=== PATIENT | female | born 1935 | race Caucasian/White ===

== ENCOUNTER → 2018-01-01 15:26 | Outpatient (CLI) | payer MEDICARE, OTHER, SELFPAY ==
[2018-01-01 16:00] LABS: Add Manual Diff / Slide Review NO; Basophils Percent Auto 1.1 % (0-2); Eosinophils Percent Auto 0.5 % (2-4); Hematocrit 36.9 % (36-46); Hemoglobin 12.2 g/dL (12.0-16.0); Lymphocytes Percent Auto 24.6 % (25-40); Mean Corpuscular HGB Conc 32.9 % (30-36); Mean Corpuscular Hemoglobin 29.7 PG (26-34); Mean Corpuscular Volume 90.3 fL (80-100); Monocytes Percent Auto 10.7 % (3-14); Neutrophils Absolute Auto 7600 /uL (3000-5900); Neutrophils Percent Auto 63.1 % (50-75); Platelet Count 345 X10^3/uL (150-400); Red Blood Cell Count 4.09 X10^6/uL (4.0-5.2); White Blood Cell Count 12.1 X10^3/uL (4.5-11.0)
[2018-01-01 16:07] LABS: Alanine Aminotransferase 32 IU/L (9-52); Albumin 4.1 g/dL (3.5-5.0); Albumin Globulin Ratio 1.2 (1.0-2.8); Alkaline Phosphatase 94 U/L (38-126); Aspartate Aminotransferase 36 IU/L (14-36); BUN Creatinine Ratio 35.7 (6-22); Bilirubin Total 0.3 mg/dL (0.2-1.3); Blood Urea Nitrogen 25 mg/dL (7-17); C-Reactive Protein Quant 0.7 mg/dL (<1.0); Calcium 9.6 mg/dL (8.4-10.2); Carbon Dioxide 25 mmol/L (22-32); Chloride 105 mmol/L (98-107); Estimated Glomerular Filt Rate > 60.0 mL/min (>60); Globulin 3.5 g/dL (1.7-4.1); Glucose 88 mg/dL (80-110); HEMOLYSIS < 15 (0-50); Potassium 4.3 mmol/L (3.4-5.1); Sodium 141 mmol/L (137-145); Total Protein 7.6 g/dL (6.3-8.2)
[2018-01-01 16:27] LABS: Erythrocyte Sedimentation Rate 32 MM/HR (0-20)
== END ==
PROVIDERS: PCP Internal Medicine; Visit Provider Internal Medicine
DX: R51 Headache (principal)
CPT/HCPCS: 36415; 80053; 85025; 85651; 86140

== ENCOUNTER → 2018-01-03 12:38 | Outpatient (CLI) | payer MEDICARE, OTHER, SELFPAY ==
--- NOTE | 2018-01-03 12:55 | DI.CT.S_ITS ---
PROCEDURE: CT FACIAL BONES WO CON INDICATIONS: 82 year-old woman with left facial pain. TECHNIQUE: Noncontrast 2.5 mm thick axial images acquired from the mandible through the frontal sinuses, with coronal and sagittal reformatting. For radiation dose reduction, the following was used: automated exposure control, adjustment of mA and/or kV according to patient size. COMPARISON: None. FINDINGS: Image quality: Excellent. Bones and teeth: Orbital watkins are intact. Sinus watkins show no fracture or deformity. Nasal bones and septum are intact. Visualized portions of the mandible demonstrate no fractures or subluxation. Zygomatic arches are intact. Pterygoid plates are intact. Visualized portions of the skull base and auditory canals are intact. There are degenerative changes in visualized upper cervical spine. Sinuses: The left frontal and maxillary sinus are opacified. There is mucosal thickening in the left ethmoid sinus. The left ostiomeatal unit is obstructed. Mastoid air cells are aerated. Soft tissues: No edema, masses, or fluid collections. No enlarged lymph nodes. No soft tissue lacerations or debris. Vascular: Visualized vascular structures appear normal in the absence of contrast. Bony vascular foramina and canals are intact. IMPRESSION: 1. Intact facial bones. 2. Left frontal, ethmoid and maxillary sinusitis. Dictated by: Albert Santiago M.D. on 01/03/2018 at 13:48 Transcribed by: WILSON on 01/03/2018 at 14:09 Approved by: Albert Santiago M.D. on 01/03/2018 at 15:18
--- NOTE | 2018-01-03 12:55 | DI.CT.S_ITS ---
PROCEDURE: CT HEAD/BRAIN WO CON INDICATIONS: headache TECHNIQUE: Noncontrast 4.5 mm thick angled axial sections acquired from the foramen magnum to the vertex, with coronal and sagittal reformats. For radiation dose reduction, the following was used: automated exposure control, adjustment of mA and/or kV according to patient size. COMPARISON: [facility], CT, HEAD WITHOUT CONTRAST, 07/17/2012, 11:15. FINDINGS: Image quality: Excellent. CSF spaces: Basal cisterns are patent. No extra-axial fluid collections. The ventricles are symmetric in size and shape. Brain: No intracranial bleeds or masses. There is cerebral volume loss for age, with resultant ventricular and sulcal prominence. There are periventricular and deep white matter chronic small vessel ischemic changes. There is intracranial internal carotid artery atherosclerosis. Anterior left temporal lobe encephalomalacia versus arachnoid cyst, unchanged since 2012. Skull and face: Calvarium and visualized facial bones appear intact, without suspicious lesions. Sinuses: Partially visualized complete opacification of the left maxillary sinus. There is partial opacification of the left ethmoid air cells IMPRESSION: No acute intracranial process. Severe left maxillary and ethmoid sinus disease. Dictated by: Endy oLve M.D. on 01/03/2018 at 12:54 Approved by: Endy Love M.D. on 01/03/2018 at 12:57
== END ==
PROVIDERS: PCP Internal Medicine; Visit Provider Internal Medicine
DX: R51 Headache (principal); J32.2 Chronic ethmoidal sinusitis; J32.0 Chronic maxillary sinusitis; J32.1 Chronic frontal sinusitis
CPT/HCPCS: 70450; 70486

== ENCOUNTER → 2018-08-07 10:06 | Outpatient (CLI) | payer MEDICARE, OTHER, SELFPAY ==
--- NOTE | 2018-08-07 10:09 | DI.RAD.S_ITS ---
PROCEDURE: XR SACRUM COCCYX MIN 2V INDICATIONS: Right sided sciatica TECHNIQUE: 3 views of the sacrum and coccyx acquired. COMPARISON: None. FINDINGS: Bones: No fractures or dislocations. No suspicious bony lesions. Soft tissues: Visualized bowel gas pattern is normal. No suspicious soft tissue densities. IMPRESSION: Mild sacroiliac joint degenerative osteoarthritic change, no mass or area of osseous abnormality is found that would explain asymmetric right sided sciatica. Results were referred to lumbosacral spine plane film report from today. Dictated by: Sean Saxena M.D. on 08/07/2018 at 10:40 Approved by: Sean Saxena M.D. on 08/07/2018 at 10:41
--- NOTE | 2018-08-07 10:09 | DI.RAD.S_ITS ---
PROCEDURE: XR LUMBAR SPINE 2-3V INDICATIONS: Right sided sciatica TECHNIQUE: 3 views of the lumbar spine were acquired. COMPARISON: None. FINDINGS: Bones: 5 xyc-nla-rixjoiy vertebrae are present. There is abnormal bony alignment at the L4-L5 level where grade 1 anterolisthesis is associated with prominent facet osteoarthritis allowing ligamentous laxity.. No vertebral body compression fractures. No suspicious bony lesions. Degenerative disc disease along the lumbosacral spine is mild to moderate in overall severity. This is best seen at L5-S1. Facet osteoarthritis becomes progressively more prominent from L3-S1. It is most pronounced at L4-5 and L5-S1 where significant spinal and foraminal stenosis likely is associated. Soft tissues: Overlying bowel gas pattern is normal. No suspicious soft tissue calcifications. IMPRESSION: Degenerative changes along the middle and lower thirds of the lumbosacral spine are present to the degree that significant spinal or foraminal stenosis would be expected. No compression fracture found. Dictated by: Sean Saxena M.D. on 08/07/2018 at 10:39 Approved by: Sean Saxena M.D. on 08/07/2018 at 10:40
== END ==
PROVIDERS: PCP Internal Medicine; Visit Provider Registered Nurse
DX: M47.27 Other spondylosis with radiculopathy, lumbosacral region (principal); M47.28 Other spondylosis with radiculopathy, sacral and sacrococcygeal region
CPT/HCPCS: 72100; 72220

== ENCOUNTER → 2018-09-09 11:09 | Outpatient (CLI) | payer MEDICARE, OTHER, SELFPAY ==
[2018-09-09 12:05] LABS: Add Manual Diff / Slide Review NO; Basophils Absolute Auto 100 /uL (0-100); Eosinophils Absolute Auto 100 /uL (0-450); Eosinophils Percent Auto 0.9 % (2-4); Hematocrit 39.9 % (36-46); Hemoglobin 13.4 g/dL (12.0-16.0); Lymphocytes Absolute Auto 2000 /uL (1100-4500); Lymphocytes Percent Auto 21.6 % (25-40); Mean Corpuscular HGB Conc 33.6 % (30-36); Mean Corpuscular Hemoglobin 29.6 PG (26-34); Mean Corpuscular Volume 88.1 fL (80-100); Monocytes Absolute Auto 800 /uL (0-900); Monocytes Percent Auto 9.1 % (3-14); Neutrophils Absolute Auto 6100 /uL (1500-7000); Neutrophils Percent Auto 67.4 % (50-75); Platelet Count 213 X10^3/uL (150-400); Red Blood Cell Count 4.53 X10^6/uL (4.0-5.2); White Blood Cell Count 9.1 X10^3/uL (4.5-11.0)
[2018-09-09 13:42] LABS: Alanine Aminotransferase 26 IU/L (9-52); Albumin 4.1 g/dL (3.5-5.0); Albumin Globulin Ratio 1.4 (1.0-2.8); Alkaline Phosphatase 143 U/L (38-126); Aspartate Aminotransferase 33 IU/L (14-36); BUN Creatinine Ratio 38.6 (6-22); Bilirubin Total 0.5 mg/dL (0.2-1.3); Blood Urea Nitrogen 27 mg/dL (7-17); Calcium 10.1 mg/dL (8.4-10.2); Carbon Dioxide 26 mmol/L (22-32); Chloride 102 mmol/L (98-107); Estimated Glomerular Filt Rate > 60.0 mL/min (>60); Glucose 84 mg/dL (80-110); HEMOLYSIS < 15 (0-50); Potassium 5.1 mmol/L (3.4-5.1); Sodium 137 mmol/L (137-145); Total Protein 7.1 g/dL (6.3-8.2)
== END ==
PROVIDERS: PCP Internal Medicine; Visit Provider Internal Medicine
DX: I10 Essential (primary) hypertension (principal); I25.10 Atherosclerotic heart disease of native coronary artery without angina pectoris
CPT/HCPCS: 36415; 80053; 85025

== ENCOUNTER → 2019-01-06 10:02 | Outpatient (CLI) | payer MEDICARE, OTHER, SELFPAY ==
[2019-01-06 11:10] LABS: Alanine Aminotransferase 23 IU/L (9-52); Aspartate Aminotransferase 36 IU/L (14-36); Cholesterol 156 mg/dL (140-199); Creatine Kinase 32 U/L (30-135); HDL Cholesterol 92 mg/dL (40-60); LDL Cholesterol Calculated 49 mg/dL (<100); Triglycerides 77 mg/dL (35-150)
[2019-01-06 11:21] LABS: LDL Cholesterol Direct 62 mg/dL (<100)
== END ==
PROVIDERS: PCP Internal Medicine; Visit Provider Internal Medicine Cardiovascular Disease
DX: E78.5 Hyperlipidemia, unspecified (principal)
CPT/HCPCS: 36415; 80061; 82550; 83721; 84450; 84460

== ENCOUNTER → 2019-01-21 15:17 | Outpatient (CLI) | payer MEDICARE, OTHER, SELFPAY ==
[2019-01-21 16:02] LABS: Bacteria Urine None Seen
[2019-01-21 16:38] LABS: Appearance Urine UA CLOUDY; Bilirubin Urine UA NEGATIVE (NEGATIVE); Color Urine UA YELLOW; Glucose Urine UA NEGATIVE (Negative); Ketones Urine UA NEGATIVE (NEGATIVE); Leukocyte Esterase Urine UA 2+ (NEGATIVE); Nitrite Urine UA NEGATIVE (Negative); Occult Blood Urine UA 3+ (Negative); Protein Urine UA 1+ (Negative); Specific Gravity Urine UA 1.025 (1.000-1.035); Urobilinogen Urine UA 0.2 E.U./dL (0.2)
[2019-01-21 17:01] LABS: Culture Indicated Urine Specimen Cultured; RBC Urine 30-100/HPF (0-5/HPF); WBC Urine 30-100/HPF (0-5/HPF)
== END ==
PROVIDERS: PCP Internal Medicine; Visit Provider Student in an Organized Health Care Education/Training Program
DX: R39.89 Other symptoms and signs involving the genitourinary system (principal)
CPT/HCPCS: 81001; 87077; 87086; 87186

== ENCOUNTER → 2019-07-14 10:43 | Outpatient (CLI) | payer MEDICARE, OTHER, SELFPAY ==
[2019-07-14 11:30] LABS: Influenza A - CEPHEID Flu A POSITIVE (NEGATIVE); Influenza B - CEPHEID Flu B NEGATIVE (NEGATIVE)
== END ==
PROVIDERS: PCP Internal Medicine; Visit Provider Physician Assistant
DX: R68.89 Other general symptoms and signs (principal)
CPT/HCPCS: 87502

== ENCOUNTER → 2019-10-10 12:09 | Outpatient (CLI) | payer MEDICARE, OTHER, SELFPAY ==
[2019-10-10 13:48] LABS: Add Manual Diff / Slide Review NO; Basophils Absolute Auto 100 /uL (0-100); Basophils Percent Auto 0.7 % (0-2); Eosinophils Absolute Auto 100 /uL (0-450); Eosinophils Percent Auto 0.7 % (2-4); Hematocrit 42.3 % (36-46); Lymphocytes Absolute Auto 2200 /uL (1100-4500); Lymphocytes Percent Auto 27.2 % (25-40); Mean Corpuscular HGB Conc 33.2 % (30-36); Mean Corpuscular Hemoglobin 32.9 PG (26-34); Mean Corpuscular Volume 99.2 fL (80-100); Monocytes Absolute Auto 900 /uL (0-900); Monocytes Percent Auto 10.7 % (3-14); Neutrophils Absolute Auto 4900 /uL (1500-7000); Neutrophils Percent Auto 60.7 % (50-75); Platelet Count 194 X10^3/uL (150-400); Red Blood Cell Count 4.27 X10^6/uL (4.0-5.2); Red Cell Distribution Width 14.6 % (11.6-14.8)
[2019-10-10 14:43] LABS: Alanine Aminotransferase 23 IU/L (<35); Albumin 4.3 g/dL (3.5-5.0); Albumin Globulin Ratio 1.3 (1.0-2.8); Alkaline Phosphatase 72 U/L (38-126); Aspartate Aminotransferase 42 IU/L (14-36); Bilirubin Total 0.4 mg/dL (0.2-1.3); Blood Urea Nitrogen 20 mg/dL (7-17); Calcium 9.9 mg/dL (8.4-10.2); Carbon Dioxide 26 mmol/L (22-32); Chloride 103 mmol/L (98-107); Estimated Glomerular Filt Rate > 60.0 mL/min (>60); Globulin 3.2 g/dL (1.7-4.1); Glucose 91 mg/dL (80-110); HEMOLYSIS < 15 (0-50); Potassium 4.6 mmol/L (3.4-5.1); Sodium 137 mmol/L (137-145); Total Protein 7.5 g/dL (6.3-8.2)
[2019-10-10 15:16] LABS: TSH w/ Reflex to FT4 1.61 uIU/mL (0.47-4.68)
== END ==
PROVIDERS: PCP Internal Medicine; Referring Provider Internal Medicine; Visit Provider Internal Medicine
DX: I10 Essential (primary) hypertension (principal); I25.10 Atherosclerotic heart disease of native coronary artery without angina pectoris
CPT/HCPCS: 36415; 80053; 84443; 85025

== ENCOUNTER → 2019-10-18 13:25 | Outpatient (CLI) | payer MEDICARE, OTHER, SELFPAY ==
[2019-10-19 01:19] LABS: COVID19 Sendout Not Detected (Not Detect)
== END ==
PROVIDERS: PCP Internal Medicine; Visit Provider Physician Assistant
DX: Z01.812 Encounter for preprocedural laboratory examination (principal)
CPT/HCPCS: 87635

== ENCOUNTER → 2019-10-21 09:34 | Outpatient (CLI) | payer MEDICARE, OTHER, SELFPAY ==
--- NOTE | 2019-10-21 14:52 | PM.TREADMILL ---
Cardiac Stress Test Report Referral & Results Date Patient Seen: 10/21/19 Requesting provider: Jose Angel Jose Indication: Chest pain/back pain Rest ECG: Left bundle branch block, old Procedure Note: After both written and verbal informed consent the patient had an IV started by the diagnostic imaging RN, and then was hooked up to the treadmill monitoring system. The Lexiscan material, and then the Cardiolite tracer, were administered sequentially. An additional 3 min was spent monitoring the patient while supine on the gurney. The patient had a normal response to all infused materials. Impression: Please see perfusion imaging report for details regarding possible ischemia. Patient had normal response to materials as above. Please note: Actual ECG tracings can be found in the PACS system.
--- NOTE | 2019-10-22 07:04 | DI.NM.S_ITS ---
DATE OF SERVICE: 10/21/2019 PROCEDURE PERFORMED: Pharmacologic vasodilator stress and rest myocardial perfusion imaging with gating to assess ejection fraction, performed as a one day study. ORDERING PROVIDER: Dr. Jose Angel Jose. INDICATIONS: The patient is an 81-year-old female with a history of LAD stenting, now with recurrent chest discomfort. PHARMACOLOGIC STRESS: Per protocol, the patient was injected with 0.4 mg of regadenoson with a normal hemodynamic response. There were no apparent symptoms reported. Her resting ECG shows a left bundle branch block which precludes assessment of the ST segments. With stress, there are no appreciable ST-segment shifts and there are no arrhythmias. Per protocol, 24.9 mCi of technetium-99m Myoview was injected and the patient was imaged 15 minutes later using a gated SPECT acquisition protocol. Earlier in the day, she had been injected with 12.3 mCi of technetium- 99m Myoview and was imaged 30 minutes later, again using a gated SPECT acquisition protocol. FINDINGS: 1. Raw data: There is fair myocardial tracer uptake with mild breast shadows noted. Lung/heart ratio was normal at 0.35. TID ratio was normal at 0.76. 2. Quantitated gated SPECT: Post-stress ejection fraction is estimated at 74%. There is a mild dyssynchronous contraction pattern, consistent with her conduction disease, but there are no obvious focal wall motion abnormalities. Resting ejection fraction is 73% with a similar contraction pattern. Resting end-diastolic volume is normal at 83 mL. 3. Myocardial perfusion imaging: Post-stress supine images show a fairly normal myocardial perfusion pattern with very subtle defect in the distal anterior apex that nearly completely resolves on prone imaging, most likely representing breast attenuation artifact. There are no other perfusion defects. The resting images show a similar perfusion pattern without any areas of improvement. The distal anterior apical defect is more prominent on the resting images. CONCLUSION: 1. Probable normal myocardial perfusion study. 2. Mild fixed distal anteroapical defect that nearly completely resolves on prone imaging, most likely reflective of attenuation artifact although a previous nontransmural infarction cannot be entirely excluded. There is no evidence for any myocardial ischemia. 3. Normal LV systolic function with a mild dyssynchronous contraction pattern due to her conduction disease. Left ventricular volumes are normal. 4. No apparent angina with pharmacologic vasodilator stress. Her pre-existing LBBB precludes assessment of ST segments, but there is no obvious ECG evidence for ischemia. Brittany Carpio - Michelle/romeo doc#: [id number]/job#: [id number] dd: 10/21/2019 17:09:00 dt: 10/21/2019 18:15:00 DICTATING /COPIES TO: Leo Desai MD; RHONDA Porter; Jose Angel Jose MD COPIES MNE: [id number]; ;
== END ==
PROVIDERS: PCP Internal Medicine; Referring Provider Internal Medicine; Visit Provider Internal Medicine
DX: I25.10 Atherosclerotic heart disease of native coronary artery without angina pectoris (principal); R07.89 Other chest pain; I44.7 Left bundle-branch block, unspecified; M54.9 Dorsalgia, unspecified; Z95.5 Presence of coronary angioplasty implant and graft
CPT/HCPCS: 78452; 93016; 93017; 93018; A9502; J2785

== ENCOUNTER → 2020-10-26 12:05 | Outpatient (CLI) | payer MEDICARE, OTHER, SELFPAY ==
[2020-10-26 12:43] LABS: Add Manual Diff / Slide Review NO; Basophils Absolute Auto 0 /uL (0-100); Basophils Percent Auto 0.6 % (0-2); Eosinophils Absolute Auto 100 /uL (0-450); Eosinophils Percent Auto 0.7 % (2-4); Hematocrit 39.1 % (36-46); Lymphocytes Absolute Auto 2400 /uL (1100-4500); Lymphocytes Percent Auto 31.9 % (25-40); Mean Corpuscular HGB Conc 33.2 % (30-36); Mean Corpuscular Hemoglobin 32.9 PG (26-34); Monocytes Absolute Auto 800 /uL (0-900); Monocytes Percent Auto 11.3 % (3-14); Neutrophils Absolute Auto 4200 /uL (1500-7000); Neutrophils Percent Auto 55.5 % (50-75); Platelet Count 195 X10^3/uL (150-400); Red Blood Cell Count 3.95 X10^6/uL (4.0-5.2); Red Cell Distribution Width 13.6 % (11.6-14.8); White Blood Cell Count 7.5 X10^3/uL (4.5-11.0)
[2020-10-26 13:19] LABS: Alanine Aminotransferase 21 IU/L (<35); Albumin 3.9 g/dL (3.5-5.0); Albumin Globulin Ratio 1.4 (1.0-2.8); Alkaline Phosphatase 61 U/L (38-126); Aspartate Aminotransferase 33 IU/L (14-36); BUN Creatinine Ratio 22.6 (6-22); Bilirubin Total 0.5 mg/dL (0.2-1.3); Blood Urea Nitrogen 19 mg/dL (7-17); Calcium 10.3 mg/dL (8.4-10.2); Carbon Dioxide 26 mmol/L (22-32); Chloride 104 mmol/L (98-107); Estimated Glomerular Filt Rate > 60.0 mL/min (>60); Globulin 2.8 g/dL (1.7-4.1); Glucose 97 mg/dL (80-110); HEMOLYSIS < 15 (0-50); Potassium 4.9 mmol/L (3.4-5.1); Sodium 137 mmol/L (137-145); Total Protein 6.7 g/dL (6.3-8.2)
[2020-10-26 13:26] LABS: Free T4, Direct Thyroxine 0.97 ng/dL (0.78-2.19)
[2020-10-26 13:40] LABS: Thyroid Stimulating Hormone 2.24 uIU/mL (0.47-4.68)
== END ==
PROVIDERS: PCP Internal Medicine; Referring Provider Internal Medicine; Visit Provider Internal Medicine
DX: G60.9 Hereditary and idiopathic neuropathy, unspecified (principal); I10 Essential (primary) hypertension; I25.10 Atherosclerotic heart disease of native coronary artery without angina pectoris
CPT/HCPCS: 36415; 80053; 84439; 84443; 85025

== ENCOUNTER → 2020-10-29 08:36 | Outpatient (CLI) | payer MEDICARE, OTHER, SELFPAY ==
--- NOTE | 2020-10-29 08:37 | DI.MRI.S_ITS ---
PROCEDURE: MR STROKE Pre- and post-contrast brain MRI, non-contrast brain MR angiogram, pre- and postcontrast neck MR angiogram INDICATIONS: mild cognitive impairment TECHNIQUE: Brain: Noncontrast axial T1 spin echo, axial T2 fast spin echo, sagittal and axial FLAIR, coronal T2 fast spin echo, axial gradient echo, axial diffusion and ADC through the brain. After the administration of contrast, axial 3D VIBE of the cranial vasculature and brain. Brain MRA: Non-contrast 3-D time of flight MR angiogram, with multiple zfhlbnc-udyvmstio-fjoxnqtklj (MIP) reformats performed. Neck MRA: Axial and sagittal TruFISP through the neck. Coronal dynamic MR angiogram during administration of contrast in the arterial and venous phases, with 3-dimenstional hcopqdg-elhplfhye-zwbzwqfzbw (MIP) reformats constructed from subtraction images. COMPARISON: [facility], , STROKE PROTOCOL, 03/15/2011, 11:31. FINDINGS: BRAIN: CSF spaces: Ventricles are grossly unremarkable. Basal cisterns are patent. No extra-axial fluid collections. Brain: No midline shift. No intracranial bleeds or masses. Rivas-white matter interface appears intact. Scattered small white matter changes, probably represent chronic microvascular ischemic disease, versus statistically less likely demyelination or other infectious, inflammatory, neurodegenerative etiology, technically nonspecific. No acute ischemia. No abnormal enhancement. Skull and face: Calvarium and facial bones appear intact. Orbits appear normal. Sinuses: Sinuses and mastoids are clear. HEAD MR ANGIOGRAPHY: Anterior circulation: Intracranial internal carotid arteries (ICA): Patent. Anterior cerebral arteries (LELIA): Patent. Middle cerebral arteries (MCA): Patent. Other: No aneurysms are seen. Posterior circulation: Visualized portions of the vertebral arteries: Patent. Basilar artery: Patent. Posterior cerebral arteries ([employer]ATIONS [employer]GER): Patent. Other: No aneurysms are seen. NECK MR ANGIOGRAPHY: Carotid system: Common carotid artery (CCA) origins: Patent. Common carotid arteries (CCA): Patent. Internal carotid arteries (ICA): Patent. Posterior circulation: Vertebral artery origins: Patent. Extracranial portions of both vertebral arteries: Patent. Basilar artery: Patent. Soft tissues: Visualized neck soft tissues demonstrate no suspicious abnormalities. Bones: No suspicious bony lesions. Cervical spondylosis and facet arthropathy. IMPRESSION: BRAIN MRI: No evidence of acute ischemia. Diffuse small white matter changes, probably represent chronic microvascular ischemic disease, versus statistically less likely demyelination or other infectious, inflammatory, neurodegenerative etiology, technically nonspecific. BRAIN MR ANGIOGRAM: No intracranial stenosis or occlusion. NECK MR ANGIOGRAM: No hemodynamically significant (>50%) ICA stenosis Dictated by: Endy Love M.D. on 10/29/2020 at 10:53 Approved by: Endy Love M.D. on 10/29/2020 at 11:03
== END ==
PROVIDERS: PCP Internal Medicine; Referring Provider Internal Medicine; Visit Provider Internal Medicine
DX: G31.84 Mild cognitive impairment of uncertain or unknown etiology (principal); M47.812 Spondylosis without myelopathy or radiculopathy, cervical region
CPT/HCPCS: 70548; 70553; A9579

== ENCOUNTER 2021-03-08 09:13 | Emergency (ER) | payer MEDICARE, OTHER, SELFPAY ==
[2021-03-08 09:15] VITALS: BP 157/91; PULSE 72; RESP 16; TEMP 36.2; O2SAT 99
--- NOTE | 2021-03-08 09:30 | ED_ITS ---
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 The area was wet because of recent rain. She slipped on walking back up the steps into the house. She fell forward striking her face. She has a laceration to the upper lip, and a contusion to her chin. She also sustained a contusion to the right hand. She denies eye injury, no visual changes. She has no dental injury or bleeding from her mouth. She has no head pain. She denies neck pain. There is no chest, or torso injury. She has contusion on the right thenar eminence, she recently had surgery to the area for arthritis. She has no restriction of motion of the right wrist over the right thumb. There are no other injuries. She takes aspirin, she is not otherwise anticoagulated. Related Data Home Medications Medication Instructions Recorded Confirmed aspirin 81 mg tablet,delayed 81 mg PO QDAY #0 04/06/12 12/03/20 release [EYLEA] #0 04/02/17 12/03/20 nitroglycerin 0.4 mg sublingual 0.4 mg SL Q5-15M PRN 01/01/18 12/03/20 tablet omega-3 fatty acids 1,000 mg 2,000 mg PO DAILY 01/01/18 12/03/20 capsule (Fish Oil Concentrate) amlodipine 10 mg tablet 10 mg PO BID tab 01/31/18 12/03/20 metoprolol tartrate 100 mg tablet 100 mg PO BID tab 10/26/20 12/03/20 Vitamin B12 1 tab PO QAM #0 11/16/20 12/03/20 atorvastatin 20 mg tablet 20 mg PO BEDTIME tab 11/16/20 12/03/20 calcium carbonate 500 mg calcium 500 mg PO BID cap 11/16/20 12/03/20 (1,250 mg) capsule furosemide 20 mg tablet 20 mg PO DAILY tab 11/16/20 12/03/20 isosorbide mononitrate 30 mg 30 mg PO DAILY 11/16/20 12/03/20 tablet,extended release 24 hr lisinopril 5 mg tablet 5 mg PO DAILY tab 11/16/20 12/03/20 vitamins A,C,B-vofr-wxzimg 14,320 2 cap PO Q DAY #0 cap 11/16/20 12/03/20 unit-226 mg-200 unit capsule (PreserVision AREDS) Previous Rx's Medication Instructions Recorded estradiol 1 mg tablet 1 mg PO QDAY #90 tab 05/24/20 Allergies Allergy/AdvReac Type Severity Reaction Status Date / Time No Known Drug Allergies Allergy Unknown Verified 03/08/21 09:23 [NO KNOWN DRUG ALLERGIES] Review of Systems Constitutional Constitutional: Reports as per HPI, Denies fever(s) and Denies headache(s) Comments: No recent illness Eyes Eyes: Denies blurry vision and Denies change in vision ENT Ears, Nose, Mouth, and Throat: Reports as per HPI, Denies vertigo, Denies dizziness and Denies headache(s) Cardiovascular Cardiovascular: Denies chest pain, Denies rapid heart rate and Denies dyspnea Respiratory Respiratory: Denies dyspnea Musculoskeletal Comments: Right hand injury, no other musculoskeletal complaints. Integumentary/Breasts Comments: Contusions. 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, wet (~2008) Measles Mild cognitive impairment Mumps Personal history of colonic polyps Surgical History Anesthesia History of ankle surgery (~1991) History of cataract removal with insertion of prosthetic lens (~2002) History of cataract removal with insertion of prosthetic lens (~2003) History of knee surgery (~2013) S/P PTCA (percutaneous transluminal coronary angioplasty) (11/13/19) Status post colectomy (~08/1996) Status post hysterectomy with oophorectomy (~1982) Family History Father Family history of colon cancer Grandmother Heart disease Grandfather Heart disease Grandmother Heart disease Grandfather No problems noted. Mother No problems noted. 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 Boat Rowing 2x a week) Smoking Status: Never smoker Tobacco: How many years used: 0 quit status: quit date established (Never Started) second hand exposure: No alcohol intake: current (Seldom) substance use type: does not use Smoking Status: Never smoker alcohol intake frequency: 0-2 drinks per day Substance Use Type: does not use Exam Initial Vital Signs Initial Vital Signs: Vital Signs Temperature 97.1 F L 03/08/21 09:15 Pulse Rate 72 03/08/21 09:15 Respiratory Rate 16 03/08/21 09:15 Blood Pressure 157/91 H 03/08/21 09:15 Pulse Oximetry 99 03/08/21 09:15 Const General: cooperative, comfortable and well groomed HENMT Ears: TM's normal bilaterally Nose: nares normal Mouth: oral mucosae normal and tongue normal Throat: posterior oropharynx normal Eyes General: appearance normal, both eyes and all related structures Conjunctivae: conjunctivae normal Pupils: PERRL EOM: EOM intact bilaterally Other: 3 cm irregular laceration from above the upper lip, across the vermilion border, and into the mid upper lip. Slight bleeding. No foreign body. This is not a through and through laceration. Contusion to the chip. No palpable deformity. No malocclusion. Neck Neck: full ROM and No tender Back/Spine/Pelvis Back: No back tenderness Skin General: other (Multiple contusions) Neuro General: patient alert, patient awake, patient oriented x3 and no focal motor deficits Extrem Other: Contusion to the right thenar eminence. Normal range of motion to the right wrist is, normal range of motion at the 1st MCP. No significant tenderness. No malrotation or digital deformity. No open wounds. Capillary refills normal in the right hand. There is no other injury to the extremities. Psych Mental Status: mental status grossly normal Procedures Laceration Repair Laceration 1: Site: lip (Upper lip through the vermilion border) Size (cm): 3 Description: irregular Depth: simple, single layer Local Anesthetic: lidocaine 1% Amount of anesthesia used (mL): 2 Pre-repair: wound explored, irrigated extensively and deep structures intact Skin layer closed with: nylon Size (cm): 6-0 Number of sutures: 4 Technique: simple, interrupted Course Orders Ordered: Discontinued Medications Bacitracin (Bacitracin Oint 0.9 Gm Pckt) 1 applic TOP NOW ONE Stop: 03/08/21 10:12 Last Admin: 03/08/21 10:23 Dose: 1 applic Documented by: JACOB Lidocaine HCl (Lidocaine 1% (Pf)) 4 ml INJ NOW ONE Stop: 03/08/21 09:29 Last Admin: 03/08/21 10:24 Dose: 2 ml Documented by: JACOB Vital Signs Vital signs: Vital Signs - 8 hr 03/08/21 09:15 Temperature 97.1 F L Pulse Rate 72 Respiratory Rate 16 Blood Pressure 157/91 H Pulse Oximetry 99 Discharge Plan Departure Patient Disposition: Home Clinical Impression: Complicated laceration of lip, Coronary artery disease involving [place] coronary artery of [place] heart without angina pectoris Instructions: DI for Laceration Repair Activity Restrictions/Additional Instructions: The bandage can come off later today. You may bathe normally once the bandages off. Follow-up with your doctor in approximately 1 week for suture removal. Return here if necessary. Prescriptions: No Action aspirin 81 MG tablet,delayed release (DR/EC) 81 mg PO QDAY Qty: 0 RF: 0 [EYLEA] Qty: 0 RF: 0 estradiol 1 mg tablet 1 mg PO QDAY Qty: 90 RF: 3 Vitamin B12 1 tab PO QAM Qty: 0 RF: 0 PreserVision AREDS 14,320-226-200 gbmr-ja-rboe capsule 2 cap PO Q DAY Qty: 0 RF: 0 amlodipine 10 mg tablet 10 mg PO BID RF: 0 atorvastatin 20 mg tablet 20 mg PO BEDTIME RF: 0 omega-3 fatty acids [Fish Oil Concentrate] 1,000 mg capsule 2,000 mg PO DAILY RF: 0 nitroglycerin 0.4 mg tablet, sublingual 0.4 mg SL Q5-15M PRNRF: 0 calcium carbonate 500 mg calcium (1,250 mg) capsule 500 mg PO BID RF: 0 metoprolol tartrate 100 mg TABLET 100 mg PO BID RF: 0 lisinopril 5 mg TABLET 5 mg PO DAILY RF: 0 furosemide 20 mg TABLET 20 mg PO DAILY RF: 0 isosorbide mononitrate 30 mg tablet extended release 24 hr 30 mg PO DAILY RF: 0 Referrals: Jose Angel Jose MD [Primary Care Provider] -
[2021-03-08] MEDS: BACITRACIN OINT 0.9 GM PCKT 1 APPLIC TOP (10:23)
[2021-03-08] MEDS: LIDOCAINE 1% (PF) 4 ML INJ (10:24)
[2021-03-08 10:34] VITALS: BP 152/74; PULSE 60; RESP 18; O2SAT 96
== END 2021-03-08 10:35 | disposition home or self-care (01) ==
PROVIDERS: Emergency Provider Emergency Medicine; PCP Internal Medicine
DX: S01.511A Laceration without foreign body of lip, initial encounter (principal); W01.198A Fall on same level from slipping, tripping and stumbling with subsequent striking against other object, initial encounter
CPT/HCPCS: 12052; 99283

== ENCOUNTER → 2021-11-14 10:51 | Outpatient (CLI) | payer MEDICARE, OTHER, SELFPAY ==
[2021-11-14 12:21] LABS: Influenza A - CEPHEID Flu A NEGATIVE (NEGATIVE); Influenza B - CEPHEID Flu B NEGATIVE (NEGATIVE)
[2021-11-14 12:56] LABS: COVID-19 CEPHEID PCR (VTM/NP) POSITIVE (Negative)
== END ==
PROVIDERS: PCP Internal Medicine; Visit Provider Physician Assistant
DX: R05.9 Cough, unspecified (principal); R19.7 Diarrhea, unspecified; R52 Pain, unspecified; U07.1 COVID-19
CPT/HCPCS: 0240U

== ENCOUNTER 2022-02-25 09:53 | Emergency (ER) | payer MEDICARE, OTHER, SELFPAY ==
[2022-02-25] VITALS (18 sets, daily range): BP systolic 135–161; BP diastolic 63–89; PULSE 53–74; RESP 15–41; TEMP 36.8; O2SAT 89–99; BMI 27.4
--- NOTE | 2022-02-25 10:00 | DI.RAD.S_ITS ---
PROCEDURE: XR CHEST 2V INDICATIONS: shortness of breath TECHNIQUE: 2 views of the chest were acquired. COMPARISON: [facility], CHEST 1 VIEW, 06/19/2015, 11:56. [facility], CHEST 1 VIEW, 06/15/2015, 8:09. FINDINGS: Surgical changes and devices: None. Lungs and pleura: Lungs are clear. No pleural effusions or pneumothorax. Mediastinum: Mediastinal contours are unchanged. Heart size is normal. Bones and chest wall: No suspicious bony abnormalities. Soft tissues appear unremarkable. IMPRESSION: No acute cardiopulmonary abnormality. Dictated by: Hussein Covington M.D. on 02/25/2022 at 9:25 Approved by: Hussein Covington M.D. on 02/25/2022 at 9:30
--- NOTE | 2022-02-25 10:15 | ED.SOB ---
HPI - SOB/Dyspnea General Chief Complaint: Shortness of Breath/Dyspnea Stated Complaint: sent by [facility] sob Time Seen by Provider: 02/25/22 10:15 Source: patient Mode of arrival: Ambulatory Limitations: no limitations History of Present Illness HPI Narrative: 86-year-old female nonsmoker with history of hypertension and hyperlipidemia presents with her in the chief complaint of 3 days of shortness of breath. She states that she seems to be short of breath with exertion and begins coughing and feels short of breath when she lays flat. She is had a wet sounding cough. She denies fever or chills. She denies runny nose, sore throat or chest pain. She denies recent travel, history of blood clot or known cancer. Related Data Home Medications Medication Instructions Recorded Confirmed aspirin 81 mg tablet,delayed 81 mg PO QDAY ##0 04/06/12 02/13/22 release [EYLEA] ##0 04/02/17 02/13/22 omega-3 fatty acids 1,000 mg 2,000 mg PO DAILY 01/01/18 02/13/22 capsule (Fish Oil Concentrate) metoprolol tartrate 100 mg tablet 100 mg PO BID 10/26/20 02/13/22 Vitamin B12 1 tab PO QAM ##0 11/16/20 02/13/22 atorvastatin 20 mg tablet 20 mg PO BEDTIME 11/16/20 02/13/22 calcium carbonate 500 mg calcium 500 mg PO BID 11/16/20 02/13/22 (1,250 mg) capsule furosemide 20 mg tablet 20 mg PO DAILY 11/16/20 02/13/22 isosorbide mononitrate 30 mg 30 mg PO DAILY 11/16/20 02/13/22 tablet,extended release 24 hr lisinopril 5 mg tablet 5 mg PO DAILY 11/16/20 02/13/22 vitamins A,C,G-vkeh-ptsyjt 14,320 2 cap PO Q DAY #0 caps 11/16/20 02/13/22 unit-226 mg-200 unit capsule (PreserVision AREDS) Previous Rx's Medication Instructions Recorded estradiol 1 mg tablet 1 mg PO QDAY #90 tabs 05/19/21 donepezil 10 mg tablet 10 mg PO BEDTIME #90 tabs 08/01/21 nitroglycerin 0.4 mg sublingual 0.4 mg sublingual Q5-15M PRN chest 09/01/21 tablet pain #100 tabs memantine 5 mg tablet 5 mg PO BID #180 tabs 02/13/22 amoxicillin 500 mg capsule 1,000 mg PO Q8H 5 days #30 caps 02/25/22 azithromycin 250 mg tablet See Rx Instructions PO .COMPLEX #6 02/25/22 tabs Allergies Allergy/AdvReac Type Severity Reaction Status Date / Time No Known Drug Allergies Allergy Unknown Verified 02/25/22 10:01 [NO KNOWN DRUG ALLERGIES] Review of Systems Review of Systems Narrative: GENERAL: Denies chills, fatigue, malaise, fever, sweats. HEENT: Denies sinus pain, ear pain, sore throat, difficulty swallowing, dizziness. RESPIRATORY: Denies dyspnea, cough, wheezing, hemoptysis, sputum. CARDIOVASCULAR: Denies chest pain, palpitations, orthopnea, edema, GASTROINTESTINAL: Denies nausea, vomiting, abdominal pain, diarrhea, constipation, melena. : Denies dysuria, frequency, incontinence, hematuria, urinary retention. MUSCULOSKELETAL: denies weakness, joint pain, or bony pain SKIN: Denies rash, skin lesions, or other NEUROLOGIC: Denies weakness, headache, numbness, change in speech, confusion, seizures, incoordination. PSYCHIATRIC: No concerning psychosocial issues. 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, wet (~2008) Measles Mumps Personal history of colonic polyps Surgical History Anesthesia History of ankle surgery (~1991) History of cataract removal with insertion of prosthetic lens (~2002) History of cataract removal with insertion of prosthetic lens (~2003) History of knee surgery (~2013) S/P PTCA (percutaneous transluminal coronary angioplasty) (11/13/19) Status post colectomy (~08/1996) Status post hysterectomy with oophorectomy (~1982) Family History Father Family history of colon cancer Grandmother Heart disease Grandfather Heart disease Grandmother Heart disease Grandfather No problems noted. Mother No problems noted. 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 Boat Rowing 2x a week) Smoking Status: Never smoker Tobacco: How many years used: 0 quit status: quit date established (Never Started) second hand exposure: No alcohol intake: current (Seldom) substance use type: does not use Smoking Status: Never smoker alcohol intake frequency: holidays/special occasions only Substance Use Type: does not use Exam Narrative Exam Narrative: GENERAL: [86] year old patient appears stated age. Well-developed patient, in mild distress. HEAD: Atraumatic. Normocephalic. EYES: Pupils equal round and reactive. Extraocular motions intact. No scleral icterus. No injection or drainage. ENT: Nose without bleeding, purulent drainage. Throat without erythema, tonsillar hypertrophy or exudate. Airway patent. NECK: Trachea midline. Non tender CARDIOVASCULAR: Regular rate and rhythm without murmurs, gallops, or rubs. RESPIRATORY: Clear to auscultation. Breath sounds equal bilaterally. No wheezes, rales, or rhonchi. GASTROINTESTINAL: Abdomen soft, non-tender, nondistended. EXTREMITIES: No edema or joint tenderness. BACK: Nontender without deformity or crepitance. No flank tenderness. NEURO: AOx3. SKIN: No rash or erythema of visible areas Initial Vital Signs Initial Vital Signs: Vital Signs Pulse Rate 66 02/25/22 09:59 Blood Pressure 135/63 02/25/22 09:59 Pulse Oximetry 98 02/25/22 09:59 Scores CURB-65 Confusion: No BUN >19mg/dL (>7mmol/L): Yes Respiratory rate greater or equal to 30: No SBP <90mmHg or DBP less or equal to 60mmHg: No Age 65 or Older: Yes CURB-65 Total: 2 Score 0-1 Outpatient care, Score 2 Inpt vs. Obs, Score 3 or over Inpt admit with ICU for score of 4-5 Course Orders Ordered: ED Orders 02/25/22 10:00 XR chest 2V Stat Measure peak expiratory flow ONCE RT Consult Eval and Treat Now 02/25/22 10:02 Complete Blood Count AUTO DIFF Stat Comprehensive Metabolic Panel Stat D Dimer Stat Lactate (Lactic Acid) Stat NT-proBNP (BNP-Adult 18+) Stat Procalcitonin Stat Prothrombin Time INR Stat Troponin & CK Cardiac Panel Stat 02/25/22 10:03 EKG-12 Lead Stat 02/25/22 10:30 COVID19 -Nasal RAPID/Pre-Proc Stat 02/25/22 11:54 CT angio chest PE protocol Stat Vital Signs Vital signs: Vital Signs - 8 hr 02/25/22 10:01 02/25/22 09:59 02/25/22 09:59 Temperature 98.2 F Pulse Rate 70 66 Respiratory Rate 16 Blood Pressure 135/63 135/63 Pulse Oximetry 98 98 Oxygen Delivery Method Room Air 02/25/22 10:00 02/25/22 10:01 02/25/22 10:01 Temperature Pulse Rate 64 60 Respiratory Rate 22 Blood Pressure 138/71 Pulse Oximetry 98 99 Oxygen Delivery Method 02/25/22 10:30 02/25/22 11:00 02/25/22 11:30 Temperature Pulse Rate 57 L 62 59 L Respiratory Rate 21 31 H 29 H Blood Pressure Pulse Oximetry 95 93 98 Oxygen Delivery Method 02/25/22 12:00 02/25/22 12:31 02/25/22 12:52 Temperature Pulse Rate 59 L 66 58 L Respiratory Rate 25 H 15 Blood Pressure Pulse Oximetry 96 89 L 98 Oxygen Delivery Method 02/25/22 12:52 02/25/22 13:00 02/25/22 13:09 Temperature Pulse Rate 54 L Respiratory Rate 18 Blood Pressure 161/72 H 153/89 H Pulse Oximetry 95 Oxygen Delivery Method 02/25/22 13:09 02/25/22 13:30 02/25/22 14:00 Temperature Pulse Rate 62 53 L 56 L Respiratory Rate 41 H 20 17 Blood Pressure Pulse Oximetry 98 99 97 Oxygen Delivery Method 02/25/22 14:30 02/25/22 15:37 02/25/22 15:00 Temperature Pulse Rate 60 74 57 L Respiratory Rate 38 H 20 19 Blood Pressure Pulse Oximetry 98 98 97 Oxygen Delivery Method 02/25/22 15:30 02/25/22 15:33 02/25/22 15:33 Temperature Pulse Rate 60 59 L Respiratory Rate 20 28 H Blood Pressure 155/68 H Pulse Oximetry 99 99 Oxygen Delivery Method MDM - SOB/Dyspnea Lab Data Result diagrams: 02/25/22 10:02 02/25/22 10:02 Labs: Lab Results 02/25/22 02/25/22 02/25/22 Range/Units 10:02 10:02 10:02 WBC 9.7 (4.5-11.0) X10^3/uL RBC 4.12 (4.0-5.2) X10^6/uL Hgb 13.6 (12.0-16.0) g/dL Hct 39.5 (36-46) % MCV 95.7 (80-100) fL MCH 32.9 (26-34) PG MCHC 34.4 (30-36) % RDW 13.7 (11.6-14.8) % Plt Count 169 (150-400) X10^3/uL Neut % (Auto) 65.1 (50-75) % Lymph % (Auto) 20.1 L (25-40) % [place] % (Auto) 13.8 (3-14) % Eos % (Auto) 0.5 L (2-4) % Baso % (Auto) 0.5 (0-2) % Neut # (Auto) 6300 (3547-3009) /uL Lymph # (Auto) 1900 (6141-8735) /uL [place] # (Auto) 1300 H (0-900) /uL Eos # (Auto) 100 (0-450) /uL Baso # (Auto) 0 (0-100) /uL PT (10.1-12.7) SECONDS INR (0.9-1.3) D-Dimer (<500) ng/ml Sodium 138 (137-145) mmol/L Potassium 4.5 (3.4-5.1) mmol/L Chloride 105 (98-107) mmol/L Carbon Dioxide 23 (22-32) mmol/L BUN 29 H (7-17) mg/dL Creatinine 0.65 (0.52-1.04) mg/dL Estimated GFR > 60 (>60) mL/min BUN/Creatinine Ratio 44.6 H (6-22) Glucose 97 (80-110) mg/dL Lactate 1.7 (0.7-2.1) mmol/L Calcium 8.8 (8.4-10.2) mg/dL Total Bilirubin 0.5 (0.2-1.3) mg/dL AST 35 (14-36) IU/L ALT 23 (<35) IU/L Alkaline Phosphatase 68 (38-126) U/L Total Creatine Kinase (30-135) U/L CK-MB (CK-2) CK-MB (CK-2) Rel Index Troponin I (0.01-0.034) ng/mL NT-Pro-B Natriuret Pep 749 H (<450) pg/mL Total Protein 7.3 (6.3-8.2) g/dL Albumin 3.8 (3.5-5.0) g/dL Globulin 3.5 (1.7-4.1) g/dL Albumin/Globulin Ratio 1.1 (1.0-2.8) Procalcitonin (<0.5) ng/mL SARS-CoV-2 (PCR) (Negative) 02/25/22 02/25/22 02/25/22 Range/Units 10:02 10:02 10:02 WBC (4.5-11.0) X10^3/uL RBC (4.0-5.2) X10^6/uL Hgb (12.0-16.0) g/dL Hct (36-46) % MCV (80-100) fL MCH (26-34) PG MCHC (30-36) % RDW (11.6-14.8) % Plt Count (150-400) X10^3/uL Neut % (Auto) (50-75) % Lymph % (Auto) (25-40) % [place] % (Auto) (3-14) % Eos % (Auto) (2-4) % Baso % (Auto) (0-2) % Neut # (Auto) (4147-9019) /uL Lymph # (Auto) (1362-3480) /uL [place] # (Auto) (0-900) /uL Eos # (Auto) (0-450) /uL Baso # (Auto) (0-100) /uL PT 12.1 (10.1-12.7) SECONDS INR 1.1 (0.9-1.3) D-Dimer 1437 H (<500) ng/ml Sodium (137-145) mmol/L Potassium (3.4-5.1) mmol/L Chloride (98-107) mmol/L Carbon Dioxide (22-32) mmol/L BUN (7-17) mg/dL Creatinine (0.52-1.04) mg/dL Estimated GFR (>60) mL/min BUN/Creatinine Ratio (6-22) Glucose (80-110) mg/dL Lactate (0.7-2.1) mmol/L Calcium (8.4-10.2) mg/dL Total Bilirubin (0.2-1.3) mg/dL AST (14-36) IU/L ALT (<35) IU/L Alkaline Phosphatase (38-126) U/L Total Creatine Kinase (30-135) U/L CK-MB (CK-2) CK-MB (CK-2) Rel Index Troponin I (0.01-0.034) ng/mL NT-Pro-B Natriuret Pep (<450) pg/mL Total Protein (6.3-8.2) g/dL Albumin (3.5-5.0) g/dL Globulin (1.7-4.1) g/dL Albumin/Globulin Ratio (1.0-2.8) Procalcitonin 0.05 (<0.5) ng/mL SARS-CoV-2 (PCR) (Negative) 02/25/22 02/25/22 Range/Units 10:02 10:30 WBC (4.5-11.0) X10^3/uL RBC (4.0-5.2) X10^6/uL Hgb (12.0-16.0) g/dL Hct (36-46) % MCV (80-100) fL MCH (26-34) PG MCHC (30-36) % RDW (11.6-14.8) % Plt Count (150-400) X10^3/uL Neut % (Auto) (50-75) % Lymph % (Auto) (25-40) % [place] % (Auto) (3-14) % Eos % (Auto) (2-4) % Baso % (Auto) (0-2) % Neut # (Auto) (0540-5152) /uL Lymph # (Auto) (7722-9314) /uL [place] # (Auto) (0-900) /uL Eos # (Auto) (0-450) /uL Baso # (Auto) (0-100) /uL PT (10.1-12.7) SECONDS INR (0.9-1.3) D-Dimer (<500) ng/ml Sodium (137-145) mmol/L Potassium (3.4-5.1) mmol/L Chloride (98-107) mmol/L Carbon Dioxide (22-32) mmol/L BUN (7-17) mg/dL Creatinine (0.52-1.04) mg/dL Estimated GFR (>60) mL/min BUN/Creatinine Ratio (6-22) Glucose (80-110) mg/dL Lactate (0.7-2.1) mmol/L Calcium (8.4-10.2) mg/dL Total Bilirubin (0.2-1.3) mg/dL AST (14-36) IU/L ALT (<35) IU/L Alkaline Phosphatase (38-126) U/L Total Creatine Kinase 56 (30-135) U/L CK-MB (CK-2) TNP CK-MB (CK-2) Rel Index TNP Troponin I < 0.012 (0.01-0.034) ng/mL NT-Pro-B Natriuret Pep (<450) pg/mL Total Protein (6.3-8.2) g/dL Albumin (3.5-5.0) g/dL Globulin (1.7-4.1) g/dL Albumin/Globulin Ratio (1.0-2.8) Procalcitonin (<0.5) ng/mL SARS-CoV-2 (PCR) Negative (Negative) ECG Data Interpretation: 1316 EKG is normal sinus rhythm rate [59 ] and free of any signs of ischemia or ectopy. No ST segmental elevation or depression. No T wave inversions. LBBB MDM Narrative Medical decision making narrative: Patient has very reassuring history and physical exam. Occasional cough on exam but no increased work of breathing, crackles noted with cough but not on exam alone. She has no significant work of breathing, tachypnea, use of accessory muscles and passes and ambulatory pulse ox test with saturations in the mid 90s and no obvious increased work of breathing. Labs are reassuring. CTA performed given shortness of breath with critically elevated D-dimer. Pneumonia noted but no central clot. Return precautions discussed and questions answered to their apparent satisfaction Discharge Plan Departure Patient Disposition: Home Clinical Impression: Left lower lobe consolidation Instructions: DI for Pneumonia -- Adult Activity Restrictions/Additional Instructions: *You have been diagnosed with [left lower lobe pneumonia. As we discussed the majority of your physical exam, labs and imaging are very reassuring. There is no evidence of heart attack, blood clot, COVID or other diagnoses that would require a specific or immediate intervention] *What to do: *Please continue to take your regular medications as directed. [ x] New medication prescriptions sent to your pharmacy: [facility] [ ] New medication written as a paper prescription [ ] No new medications given *Please follow up with your primary care provider in 2-3 days, call for an appointment. Let them know you were seen in the Emergency Department and that we ask that you be seen in follow up. We will electronically transmit a record of today's note if your PCP is in our system *Return to Emergency Department if you should have any new, worsening or concerning symptoms, such as [fever greater than 101 F, shaking chills, worsening pain, persistent vomiting or other bothersome symptoms] Prescriptions: New amoxicillin 500 mg capsule 1,000 mg PO Q8H 5 Days Qty: 30 0RF azithromycin 250 mg tablet See Rx Instructions .ROUTE .COMPLEX Qty: 6 0RF Rx Instructions: For 250 mg dose pack: take 500 mg today (day 1), then 250 mg for 4 days (days 2-5) No Action aspirin 81 MG tablet,delayed release (DR/EC) 81 mg PO QDAY Qty: 0 [EYLEA] Qty: 0 Vitamin B12 1 tab PO QAM Qty: 0 PreserVision AREDS [id number],[id number] coza-xv-egzx capsule 2 cap PO Q DAY Qty: 0 estradiol 1 mg tablet 1 mg PO QDAY Qty: 90 3RF atorvastatin 20 mg tablet 20 mg PO BEDTIME omega-3 fatty acids [Fish Oil Concentrate] 1,000 mg capsule 2,000 mg PO DAILY calcium carbonate 500 mg calcium (1,250 mg) capsule 500 mg PO BID Rx Instructions: + Viamin D metoprolol tartrate 100 mg TABLET 100 mg PO BID lisinopril 5 mg TABLET 5 mg PO DAILY furosemide 20 mg TABLET 20 mg PO DAILY isosorbide mononitrate 30 mg tablet extended release 24 hr 30 mg PO DAILY nitroglycerin 0.4 mg tablet, sublingual 0.4 mg SL Q5-15M PRN (Reason: chest pain) Qty: 100 1RF memantine 5 mg tablet 5 mg PO BID Qty: 180 3RF donepezil 10 mg tablet 10 mg PO BEDTIME Qty: 90 3RF Rx Instructions: start after 30 days on lower dose Referrals: Jose Angel Jose MD [Primary Care Provider] -
[2022-02-25 10:31] LABS: INR 1.1 (0.9-1.3); Prothrombin Time 12.1 SECONDS (10.1-12.7)
[2022-02-25 10:36] LABS: Lactate (Lactic Acid) 1.7 mmol/L (0.7-2.1)
[2022-02-25 10:37] LABS: Alanine Aminotransferase 23 IU/L (<35); Albumin 3.8 g/dL (3.5-5.0); Albumin Globulin Ratio 1.1 (1.0-2.8); Alkaline Phosphatase 68 U/L (38-126); Aspartate Aminotransferase 35 IU/L (14-36); BUN Creatinine Ratio 44.6 (6-22); Bilirubin Total 0.5 mg/dL (0.2-1.3); Blood Urea Nitrogen 29 mg/dL (7-17); Calcium 8.8 mg/dL (8.4-10.2); Carbon Dioxide 23 mmol/L (22-32); Chloride 105 mmol/L (98-107); Estimated Glomerular Filt Rate > 60 mL/min (>60); Globulin 3.5 g/dL (1.7-4.1); Glucose 97 mg/dL (80-110); Potassium 4.5 mmol/L (3.4-5.1); Sodium 138 mmol/L (137-145); Total Protein 7.3 g/dL (6.3-8.2)
[2022-02-25 10:41] LABS: Add Manual Diff / Slide Review NO; Basophils Absolute Auto 0 /uL (0-100); Basophils Percent Auto 0.5 % (0-2); Eosinophils Absolute Auto 100 /uL (0-450); Eosinophils Percent Auto 0.5 % (2-4); Hematocrit 39.5 % (36-46); Hemoglobin 13.6 g/dL (12.0-16.0); Lymphocytes Absolute Auto 1900 /uL (1100-4500); Lymphocytes Percent Auto 20.1 % (25-40); Mean Corpuscular HGB Conc 34.4 % (30-36); Mean Corpuscular Hemoglobin 32.9 PG (26-34); Mean Corpuscular Volume 95.7 fL (80-100); Monocytes Absolute Auto 1300 /uL (0-900); Monocytes Percent Auto 13.8 % (3-14); Neutrophils Absolute Auto 6300 /uL (1500-7000); Neutrophils Percent Auto 65.1 % (50-75); Platelet Count 169 X10^3/uL (150-400); Red Blood Cell Count 4.12 X10^6/uL (4.0-5.2); Red Cell Distribution Width 13.7 % (11.6-14.8); White Blood Cell Count 9.7 X10^3/uL (4.5-11.0)
[2022-02-25 10:42] LABS: HEMOLYSIS 103 (0-50)
[2022-02-25 10:46] LABS: NT-proBNP (BNP-Adult 18+) 749 pg/mL (<450)
[2022-02-25 10:54] LABS: Procalcitonin 0.05 ng/mL (<0.5)
[2022-02-25 11:04] LABS: D Dimer 1437 ng/ml (<500)
[2022-02-25 11:22] LABS: COVID19 -Nasal RAPID Negative (Negative)
--- NOTE | 2022-02-25 11:54 | DI.CT.S_ITS ---
PROCEDURE: CT ANGIO CHEST PE PROTOCOL INDICATIONS: SOB, critical Dimer, PE? TECHNIQUE: After the administration of intravenous contrast, 2 mm thick sections acquired from the pulmonary apices to the posterior costophrenic angles. 3-dimensional maximum intensity projection (MIP) coronal and sagittal reformats were then acquired through the thorax. For radiation dose reduction, the following was used: automated exposure control, adjustment of mA and/or kV according to patient size. COMPARISON: [facility], CT, PE STUDY (CTA CHEST), 06/19/2015, 15:06. [facility], CR, XR CHEST 2V, 02/25/2022, 10:02. FINDINGS: Image quality: Excellent. Pulmonary arteries: Pulmonary arteries are normal in size, and demonstrate no intraluminal filling defects to suggest central pulmonary embolism. Lungs and pleura: Patchy airspace opacity in the left lower lobe. There is bronchial wall thickening. Right minor fissure pulmonary nodule measuring 0.2 cm No pleural effusions or pneumothorax. Central and peripheral airways are patent. Mediastinum: Heart size is normal, without pericardial effusion. No mediastinal or hilar adenopathy. Right paratracheal node measuring 0.7 cm. Subcarinal node measuring 0.8 cm. Thoracic aorta is normal in caliber and enhancement. Esophagus is normal in caliber, without hiatal hernia. Bones and chest wall: No suspicious bony lesions. Ribs and thoracic spine appear intact throughout. Thyroid gland is unremarkable. No axillary or supraclavicular adenopathy. Abdomen: Visualized upper abdominal solid organs appear normal in the early arterial phase of enhancement. IMPRESSION: 1. No pulmonary embolism. 2. Minimal airspace opacity at the left lower lobe this could represent mild pneumonia or atelectasis. 3. Mild bronchial wall thickening. This could be seen in bronchitis. Dictated by: Hussein Covington M.D. on 02/25/2022 at 12:06 Approved by: Hussein Covington M.D. on 02/25/2022 at 12:14
[2022-02-25 14:07] LABS: Creatine Kinase 56 U/L (30-135)
[2022-02-25 14:18] LABS: Troponin I < 0.012 ng/mL (0.01-0.034)
--- NOTE | 2022-02-25 15:07 | PC.NURSE ---
about 500ml out. pt appeared winded while transferring.
--- NOTE | 2022-02-25 15:37 | PC.NURSE ---
ambulated independent, steady gate, hr 71-78 pulse ox 97-98%
== END 2022-02-25 15:51 | disposition home or self-care (01) ==
PROVIDERS: Emergency Provider Emergency Medicine; PCP Internal Medicine
DX: J18.1 Lobar pneumonia, unspecified organism (principal); Z20.822 Contact with and (suspected) exposure to COVID-19
CPT/HCPCS: 36415; 71046; 71275; 80053; 82550; 83605; 83880; 84145; 84484; 85025; 85379; 85610; 87635; 93005; 99284; C9803; Q9967

== ENCOUNTER → 2022-06-27 15:50 | Outpatient (CLI) | payer MEDICARE, OTHER, SELFPAY ==
--- NOTE | 2022-06-27 15:53 | DI.RAD.S_ITS ---
PROCEDURE: XR CHEST 2V INDICATIONS: dyspnea TECHNIQUE: 2 views of the chest were acquired. COMPARISON: [facility], CR, XR CHEST 2V, 02/25/2022, 10:02. FINDINGS: Surgical changes and devices: None. Lungs and pleura: Lungs are clear. No pleural effusions or pneumothorax. Mediastinum: Mediastinal contours are normal. Heart size is normal. Bones and chest wall: No suspicious bony abnormalities. Soft tissues appear unremarkable. IMPRESSION: No acute cardiopulmonary disease process. Dictated by: Amber Portillo MD, PhD on 06/27/2022 at 16:36 Approved by: Amber Portillo MD, PhD on 06/27/2022 at 16:36
[2022-06-27 16:48] LABS: Add Manual Diff / Slide Review NO; Basophils Absolute Auto 100 /uL (0-100); Basophils Percent Auto 0.7 % (0-2); Eosinophils Absolute Auto 100 /uL (0-450); Eosinophils Percent Auto 0.8 % (2-4); Hematocrit 38.7 % (36-46); Hemoglobin 13.1 g/dL (12.0-16.0); Lymphocytes Absolute Auto 2100 /uL (1100-4500); Lymphocytes Percent Auto 24.9 % (25-40); Mean Corpuscular HGB Conc 33.7 % (30-36); Mean Corpuscular Hemoglobin 32.6 PG (26-34); Mean Corpuscular Volume 96.5 fL (80-100); Monocytes Absolute Auto 900 /uL (0-900); Monocytes Percent Auto 10.8 % (3-14); Neutrophils Absolute Auto 5200 /uL (1500-7000); Neutrophils Percent Auto 62.8 % (50-75); Platelet Count 183 X10^3/uL (150-400); Red Blood Cell Count 4.01 X10^6/uL (4.0-5.2); Red Cell Distribution Width 14.5 % (11.6-14.8); White Blood Cell Count 8.3 X10^3/uL (4.5-11.0)
[2022-06-27 17:33] LABS: Alanine Aminotransferase 22 IU/L (<35); Albumin 3.8 g/dL (3.5-5.0); Albumin Globulin Ratio 1.3 (1.0-2.8); Alkaline Phosphatase 87 U/L (38-126); Aspartate Aminotransferase 28 IU/L (14-36); Bilirubin Total 0.4 mg/dL (0.2-1.3); Blood Urea Nitrogen 36 mg/dL (7-17); Calcium 9.1 mg/dL (8.4-10.2); Carbon Dioxide 24 mmol/L (22-32); Chloride 107 mmol/L (98-107); Estimated Glomerular Filt Rate > 60 mL/min (>60); Globulin 2.9 g/dL (1.7-4.1); Glucose 95 mg/dL (80-110); HEMOLYSIS < 15 (0-50); Potassium 4.4 mmol/L (3.4-5.1); Sodium 139 mmol/L (137-145); Total Protein 6.7 g/dL (6.3-8.2)
== END ==
PROVIDERS: PCP Internal Medicine; Referring Provider Internal Medicine; Visit Provider Internal Medicine
DX: F02.80 Dementia in other diseases classified elsewhere, unspecified severity, without behavioral disturbance, psychotic disturbance, mood disturbance, and anxiety (principal); G30.9 Alzheimer's disease, unspecified; I10 Essential (primary) hypertension; R06.00 Dyspnea, unspecified
CPT/HCPCS: 36415; 71046; 80053; 85025

== ENCOUNTER → 2022-11-13 09:52 | Outpatient (CLI) | payer MEDICARE, OTHER, SELFPAY ==
[2022-11-13 10:11] LABS: Add Manual Diff / Slide Review NO; Basophils Absolute Auto 100 /uL (0-100); Basophils Percent Auto 0.8 % (0-2); Eosinophils Absolute Auto 0 /uL (0-450); Eosinophils Percent Auto 0.5 % (2-4); Hematocrit 38.9 % (36-46); Hemoglobin 13.5 g/dL (12.0-16.0); Lymphocytes Absolute Auto 2000 /uL (1100-4500); Lymphocytes Percent Auto 23.8 % (25-40); Mean Corpuscular HGB Conc 34.6 % (30-36); Mean Corpuscular Hemoglobin 33.3 PG (26-34); Mean Corpuscular Volume 96.2 fL (80-100); Monocytes Absolute Auto 900 /uL (0-900); Monocytes Percent Auto 10.3 % (3-14); Neutrophils Absolute Auto 5600 /uL (1500-7000); Neutrophils Percent Auto 64.6 % (50-75); Platelet Count 187 X10^3/uL (150-400); Red Blood Cell Count 4.05 X10^6/uL (4.0-5.2); Red Cell Distribution Width 13.8 % (11.6-14.8); White Blood Cell Count 8.6 X10^3/uL (4.5-11.0)
[2022-11-13 10:24] LABS: Alanine Aminotransferase 25 IU/L (<35); Albumin 3.8 g/dL (3.5-5.0); Albumin Globulin Ratio 1.2 (1.0-2.8); Alkaline Phosphatase 78 U/L (38-126); Aspartate Aminotransferase 29 IU/L (14-36); BUN Creatinine Ratio 30.9 (6-22); Bilirubin Total 0.6 mg/dL (0.2-1.3); Blood Urea Nitrogen 25 mg/dL (7-17); Calcium 9.3 mg/dL (8.4-10.2); Carbon Dioxide 27 mmol/L (22-32); Chloride 105 mmol/L (98-107); Estimated Glomerular Filt Rate > 60 mL/min (>60); Globulin 3.1 g/dL (1.7-4.1); Glucose 103 mg/dL (80-110); HEMOLYSIS < 15 (0-50); Potassium 4.6 mmol/L (3.4-5.1); Sodium 138 mmol/L (137-145); Total Protein 6.9 g/dL (6.3-8.2)
[2022-11-13 10:32] LABS: NT-proBNP (BNP-Adult 18+) 605 pg/mL (<450)
== END ==
PROVIDERS: PCP Internal Medicine; Referring Provider Internal Medicine; Visit Provider Internal Medicine
DX: I10 Essential (primary) hypertension (principal); I50.32 Chronic diastolic (congestive) heart failure
CPT/HCPCS: 36415; 80053; 83880; 85025

== ENCOUNTER → 2023-12-10 14:23 | Outpatient (CLI) | payer MEDICARE, OTHER, SELFPAY ==
[2023-12-10 15:04] LABS: Add Manual Diff / Slide Review NO; Basophils Absolute Auto 100 /uL (0-100); Basophils Percent Auto 0.7 % (0-2); Eosinophils Absolute Auto 100 /uL (0-450); Eosinophils Percent Auto 0.9 % (2-4); Hematocrit 39.5 % (36-46); Hemoglobin 13.4 g/dL (12.0-16.0); Lymphocytes Absolute Auto 2200 /uL (1100-4500); Lymphocytes Percent Auto 23.8 % (25-40); Mean Corpuscular HGB Conc 33.9 % (30-36); Mean Corpuscular Hemoglobin 33.3 PG (26-34); Monocytes Absolute Auto 800 /uL (0-900); Monocytes Percent Auto 7.9 % (3-14); Neutrophils Absolute Auto 6300 /uL (1500-7000); Neutrophils Percent Auto 66.7 % (50-75); Platelet Count 203 X10^3/uL (150-400); Red Blood Cell Count 4.03 X10^6/uL (4.0-5.2); Red Cell Distribution Width 13.2 % (11.6-14.8); White Blood Cell Count 9.4 X10^3/uL (4.5-11.0)
[2023-12-10 15:12] LABS: Alanine Aminotransferase 22 IU/L (<35); Albumin Globulin Ratio 1.4 (1.0-2.8); Alkaline Phosphatase 76 U/L (38-126); Aspartate Aminotransferase 28 IU/L (14-36); BUN Creatinine Ratio 30.8 (6-22); Bilirubin Total 0.4 mg/dL (0.2-1.3); Blood Urea Nitrogen 28 mg/dL (7-17); Calcium 9.2 mg/dL (8.4-10.2); Carbon Dioxide 28 mmol/L (22-32); Chloride 106 mmol/L (98-107); Estimated Glomerular Filt Rate > 60 mL/min (>60); Globulin 2.9 g/dL (1.7-4.1); Glucose 104 mg/dL (80-110); HEMOLYSIS 22 (0-50); Potassium 4.4 mmol/L (3.4-5.1); Sodium 139 mmol/L (137-145); Total Protein 6.9 g/dL (6.3-8.2)
== END ==
PROVIDERS: PCP Internal Medicine; Referring Provider Internal Medicine; Visit Provider Internal Medicine
DX: I50.32 Chronic diastolic (congestive) heart failure (principal); N39.46 Mixed incontinence; I12.9 Hypertensive chronic kidney disease with stage 1 through stage 4 chronic kidney disease, or unspecified chronic kidney disease
CPT/HCPCS: 80053; 85025

== ENCOUNTER 2024-02-15 19:07 | Emergency (ER) | payer MEDICARE, OTHER, SELFPAY ==
[2024-02-15] VITALS (11 sets, daily range): BP systolic 108–150; BP diastolic 56–76; PULSE 48–80; RESP 12–32; O2SAT 89–94
--- NOTE | 2024-02-15 19:17 | DI.RAD.S_ITS ---
PROCEDURE: XR CHEST 1V INDICATIONS: chest pain TECHNIQUE: One view of the chest was acquired. COMPARISON: [facility], CR, XR CHEST 2V, 06/27/2022, 16:24. FINDINGS: Surgical changes and devices: None. Lungs and pleura: Lungs are clear. No pleural effusions or pneumothorax. Mediastinum: Mediastinal contours appear normal. Heart size is normal. Bones and chest wall: No suspicious bony lesions. Overlying soft tissues appear unremarkable. IMPRESSION: No acute cardiopulmonary pathology. Dictated by: Luis Hurt M.D. on 02/15/2024 at 19:45 Approved by: Luis Hurt M.D. on 02/15/2024 at 19:46
--- NOTE | 2024-02-15 19:20 | EKG_ITS ---
[address] [address] Test Date: 2024-02-15 Pat Name: Brittany Carpio Department: Room: Gender: Female Design Draftsman: DULCE MARIA : 1935 Requested By: Order Number: [id number] Reading MD: Mick Pablo Measurements Intervals [place] Rate: 48 P: 51 [place]: 192 QRS: -26 QRSD: 134 T: 72 QT: 530 QTc: 473 Interpretive Statements Sinus bradycardia Left bundle branch block Electronically Signed On 02-18-2024 15:51:41 PDT by Mick Pablo
--- NOTE | 2024-02-15 19:20 | EKG_ITS ---
[address] [address] Test Date: 2024-02-15 Pat Name: Brittany Carpio Department: Room: Gender: Female Piggyback Clerk: DULCE MARIA : 1935 Requested By: Order Number: [id number] Reading MD: Mick Pablo Measurements Intervals [place] Rate: 48 P: 46 [place]: 196 QRS: -29 QRSD: 128 T: 105 QT: 514 QTc: 459 Interpretive Statements Sinus bradycardia Left bundle branch block Electronically Signed On 02-18-2024 15:51:50 PDT by Mick Pablo
[2024-02-15 19:28] LABS: Add Manual Diff / Slide Review NO; Basophils Absolute Auto 100 /uL (0-100); Basophils Percent Auto 0.6 % (0-2); Eosinophils Absolute Auto 100 /uL (0-450); Eosinophils Percent Auto 1.1 % (2-4); Hematocrit 37.1 % (36-46); Hemoglobin 12.5 g/dL (12.0-16.0); Lymphocytes Absolute Auto 1800 /uL (1100-4500); Lymphocytes Percent Auto 18.1 % (25-40); Mean Corpuscular HGB Conc 33.8 % (30-36); Mean Corpuscular Hemoglobin 33.2 PG (26-34); Mean Corpuscular Volume 98.2 fL (80-100); Monocytes Absolute Auto 900 /uL (0-900); Monocytes Percent Auto 8.9 % (3-14); Neutrophils Absolute Auto 6900 /uL (1500-7000); Neutrophils Percent Auto 71.3 % (50-75); Platelet Count 213 X10^3/uL (150-400); Red Blood Cell Count 3.78 X10^6/uL (4.0-5.2); Red Cell Distribution Width 13.3 % (11.6-14.8); White Blood Cell Count 9.7 X10^3/uL (4.5-11.0)
[2024-02-15 19:33] LABS: INR 1.1 (0.9-1.3); Prothrombin Time 12.1 SECONDS (9.4-12.5)
[2024-02-15 19:36] LABS: PTT Partial Thromboplastin Tim 30 SECONDS (25.1-36.5)
[2024-02-15 19:37] LABS: Alanine Aminotransferase 24 IU/L (<35); Alkaline Phosphatase 90 U/L (38-126); Aspartate Aminotransferase 25 IU/L (14-36); BUN Creatinine Ratio 21.3 (6-22); Bilirubin Total 0.4 mg/dL (0.2-1.3); Blood Urea Nitrogen 19 mg/dL (7-17); Calcium 8.8 mg/dL (8.4-10.2); Chloride 106 mmol/L (98-107); Creatine Kinase 40 U/L (30-135); Estimated Glomerular Filt Rate > 60 mL/min (>60); Glucose 153 mg/dL (80-110); HEMOLYSIS < 15 (0-50); Lipase 295 U/L (23-300); Magnesium 1.7 mg/dL (1.6-2.3); Potassium 3.6 mmol/L (3.4-5.1); Sodium 135 mmol/L (137-145)
[2024-02-15 19:49] LABS: NT-proBNP (BNP-Adult 18+) 1260 pg/mL (<450); Troponin I < 0.012 ng/mL (0.01-0.034)
[2024-02-15 19:56] LABS: Albumin 3.4 g/dL (3.5-5.0); Albumin Globulin Ratio 1.3 (1.0-2.8); Carbon Dioxide 21 mmol/L (22-32); Globulin 2.6 g/dL (1.7-4.1)
[2024-02-15 22:08] LABS: Troponin I < 0.012 ng/mL (0.01-0.034)
--- NOTE | 2024-02-15 23:52 | ED.SYNCOPE ---
HPI - Syncope General Chief Complaint: Altered Mental Status Stated Complaint: unconcious for 3min, hypotensive, at baseline Time Seen by Provider: 02/15/24 23:45 Source: patient, family, EMS, RN notes reviewed and old records reviewed Mode of arrival: EMS Limitations: no limitations History of Present Illness HPI narrative: 88-year-old history of hypertension, dyslipidemia, dementia, CHF patient is on aspirin daily. Patient had episode today where she was seated eating dinner with her was having chicken Leobardo and sort of lost consciousness for a brief period of time has been states he does not think more of the minute sort of fell to her side but did not fall off of her chair eyes rolled back he states patient came back to herself quite quickly. No recent fevers or chills no chest pain no shortness of breath, no nausea or vomiting she has been eating and drinking normally. No complaints of abdominal pain. She has had some diarrhea for the last several days no black or bloody stools. Has been a few times daily but he suspect some dehydration. States she was some chronic urinary incontinence but no new changes to urination. No new swelling in extremities. Patient does have a history of cardiac stent about 10 or 15 years ago she was on an aspirin daily, denies any other surgeries. No known drug allergies. No tobacco, alcohol or recreational drugs. Patient is feeling improved has been states she was back to her normal. Patient's primary care is Dr. Jose, she follows with cardiology and Mane. Related Data Home Medications Medication Instructions Recorded Confirmed aspirin 81 mg tablet,delayed 81 mg PO QDAY ##0 04/06/12 12/10/23 release [EYLEA] ##0 04/02/17 12/10/23 omega-3 fatty acids 1,000 mg 2,000 mg PO DAILY 01/01/18 12/10/23 capsule (Fish Oil Concentrate) Vitamin B12 1 tab PO QAM ##0 11/16/20 12/10/23 atorvastatin 20 mg tablet 20 mg PO BEDTIME 11/16/20 12/10/23 calcium carbonate 500 mg PO BID 11/16/20 12/10/23 furosemide 20 mg tablet 20 mg PO DAILY 11/16/20 12/10/23 isosorbide mononitrate 30 mg 30 mg PO DAILY 11/16/20 12/10/23 tablet,extended release 24 hr lisinopril 5 mg tablet 5 mg PO DAILY 11/16/20 12/10/23 vitamins A,C,D-sukl-whsrlz 4,296 2 cap PO Q DAY #0 caps 11/16/20 12/10/23 mcg-226 mg-90 mg capsule (PreserVision AREDS) metoprolol tartrate 100 mg tablet 50 mg PO BID 05/07/23 12/10/23 Previous Rx's Medication Instructions Recorded nitroglycerin 0.4 mg sublingual 0.4 mg sublingual Q5-15M PRN chest 09/01/21 tablet pain #100 tabs estradiol 1 mg tablet 1 mg PO QDAY #90 tabs 05/22/23 memantine 10 mg tablet 10 mg PO BID #180 tabs 05/30/23 olanzapine 2.5 mg tablet 2.5 mg PO BEDTIME #90 tabs 07/16/23 olanzapine 5 mg tablet 5 mg PO BEDTIME #90 tabs 07/16/23 donepezil 10 mg tablet 10 mg PO BEDTIME #90 tabs 08/01/23 oxybutynin chloride 5 mg tablet 5 mg PO BID #60 tabs 08/06/23 mupirocin 2 % topical ointment 1 applic topical TID #22 grams 10/18/23 Allergies Allergy/AdvReac Type Severity Reaction Status Date / Time fluoxetine AdvReac Mild Depression Verified 12/10/23 13:51 Review of Systems Review of Systems ROS Unobtainable: All systems reviewed & are unremarkable except as noted in HPI and below Patient History Medical History Urinary incontinence, mixed Chronic heart failure with preserved ejection fraction COVID-19 (~10/2021) Alzheimer disease Fractures Eczema Mumps Measles Chicken pox Macular degeneration, 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, dry (~2007) Heavy menstrual period (~1979) Bundle branch block, left Idiopathic peripheral neuropathy (12/01/16) Coronary artery disease involving [place] coronary artery of [place] heart without angina pectoris (05/2015) Diverticulosis of large intestine without perforation or abscess without bleeding Essential hypertension Personal history of colonic polyps Surgical History S/P PTCA (percutaneous transluminal coronary angioplasty) (11/13/19) Anesthesia History of knee surgery (~2013) History of ankle surgery (~1991) History of cataract removal with insertion of prosthetic lens (~2003) History of cataract removal with insertion of prosthetic lens (~2002) Status post colectomy (~08/1996) Status post hysterectomy with oophorectomy (~1982) Family History Father Family history of colon cancer Grandmother Heart disease Grandfather Heart disease Grandmother Heart disease Grandfather No problems noted. Mother No problems noted. 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: [employer] leisure activities: exercise, reading and other Smoking Status: Never smoker Tobacco: How many years used: 0 quit status: quit date established second hand exposure: No alcohol intake: current substance use type: does not use Smoking Status: Never smoker alcohol intake frequency: holidays/special occasions only Substance Use Type: does not use Exam Narrative Exam Narrative: GENERAL: Alert and oriented, elderly female in mild distress HEENT: Head normocephalic, atraumatic, EOMI, pupils reactive, face symmetric, moist mucous membranes NECK: Supple, full range of motion CARDIOVASCULAR: Regular rate and rhythm without murmurs, rubs or gallops. No JVD. No edema bilateral lower extremities. RESPIRATORY: Breath sounds equal bilaterally, no wheezes rales or rhonchi. No tachypnea or accessory muscle use ABDOMEN: Soft, nontender. Normoactive bowel sounds all 4 quadrants. No guarding or rebound, rigidity, no mass : No CVA tenderness EXTREMITIES: Normal range of motion, no clubbing or edema. Neurovascularly intact NEUROLOGICAL: Cranial nerves II through XII grossly intact. Moving all extremities SKIN: Warm, dry, no petechiae, no rashes or lesions. Initial Vital Signs Initial Vital Signs: Vital Signs Pulse Rate 48 L 02/15/24 19:11 Respiratory Rate 12 02/15/24 19:11 Blood Pressure 113/56 L 02/15/24 19:11 Pulse Oximetry 91 02/15/24 19:11 Oxygen Delivery Method Room Air 10/18/24 19:11 Course Orders Ordered: ED Orders 02/15/24 19:17 XR chest 1V Stat Complete Blood Count AUTO DIFF Stat Comprehensive Metabolic Panel Stat Lipase Stat Magnesium Stat NT-proBNP (BNP-Adult 18+) Stat PTT Partial Thromboplastin Uvaldo Stat Prothrombin Time INR Stat Troponin & CK Cardiac Panel Stat EKG-12 Lead Stat 02/15/24 19:20 EKG-12 Lead Routine 02/15/24 21:38 Trop I [Troponin I] Stat Discontinued Medications Aspirin (Aspirin 81 Mg Chew Tab) 324 mg PO NOW ONE Stop: 02/15/24 19:18 Vital Signs Vital signs: Vital Signs - 8 hr 02/15/24 19:45 02/15/24 20:00 02/15/24 20:30 Pulse Rate 59 L 50 L 58 L Respiratory Rate 32 H 17 19 Blood Pressure 119/59 L 123/59 L Pulse Oximetry 89 L 91 90 L Oxygen Delivery Method 02/15/24 21:00 02/15/24 21:30 02/15/24 21:30 Pulse Rate 57 L 48 L Respiratory Rate 20 18 Blood Pressure 116/56 L 108/56 L Pulse Oximetry 93 93 Oxygen Delivery Method Room Air 02/15/24 22:00 02/15/24 22:00 02/15/24 22:30 Pulse Rate 49 L Respiratory Rate 18 Blood Pressure 116/56 L 108/59 L Pulse Oximetry 94 Oxygen Delivery Method 02/15/24 22:30 02/15/24 23:00 02/15/24 23:06 Pulse Rate 51 L 80 54 L Respiratory Rate 21 19 18 Blood Pressure Pulse Oximetry 93 94 93 Oxygen Delivery Method Room Air 02/15/24 23:06 02/15/24 23:31 02/16/24 00:00 Pulse Rate 48 L 57 L Respiratory Rate 13 17 Blood Pressure 150/76 H 123/58 L 136/69 Pulse Oximetry 92 92 Oxygen Delivery Method Room Air MDM - Syncope Lab Data 02/15/24 19:17 02/15/24 19:17 Labs: Lab Results 02/15/24 02/15/24 Range/Units 19:17 21:38 WBC 9.7 (4.5-11.0) X10^3/uL RBC 3.78 L (4.0-5.2) X10^6/uL Hgb 12.5 (12.0-16.0) g/dL Hct 37.1 (36-46) % MCV 98.2 (80-100) fL MCH 33.2 (26-34) PG MCHC 33.8 (30-36) % RDW 13.3 (11.6-14.8) % Plt Count 213 (150-400) X10^3/uL Neut % (Auto) 71.3 (50-75) % Lymph % (Auto) 18.1 L (25-40) % Vance % (Auto) 8.9 (3-14) % Eos % (Auto) 1.1 L (2-4) % Baso % (Auto) 0.6 (0-2) % Neut # (Auto) 6900 (2433-1367) /uL Lymph # (Auto) 1800 (1846-6001) /uL Vance # (Auto) 900 (0-900) /uL Eos # (Auto) 100 (0-450) /uL Baso # (Auto) 100 (0-100) /uL PT 12.1 (9.4-12.5) SECONDS INR 1.1 (0.9-1.3) APTT 30 (25.1-36.5) SECONDS Sodium 135 L (137-145) mmol/L Potassium 3.6 (3.4-5.1) mmol/L Chloride 106 (98-107) mmol/L Carbon Dioxide 21 L (22-32) mmol/L BUN 19 H (7-17) mg/dL Creatinine 0.89 (0.52-1.04) mg/dL Estimated GFR > 60 (>60) mL/min BUN/Creatinine Ratio 21.3 (6-22) Glucose 153 H (80-110) mg/dL Calcium 8.8 (8.4-10.2) mg/dL Magnesium 1.7 (1.6-2.3) mg/dL Total Bilirubin 0.4 (0.2-1.3) mg/dL AST 25 (14-36) IU/L ALT 24 (<35) IU/L Alkaline Phosphatase 90 (38-126) U/L Total Creatine Kinase 40 (30-135) U/L Troponin I < 0.012 < 0.012 (0.01-0.034) ng/mL NT-Pro-B Natriuret Pep 1260 H (<450) pg/mL Total Protein 6.0 L (6.3-8.2) g/dL Albumin 3.4 L (3.5-5.0) g/dL Globulin 2.6 (1.7-4.1) g/dL Albumin/Globulin Ratio 1.3 (1.0-2.8) Lipase 295 (23-300) U/L Imaging Data Chest x-ray: Radiologist's Impression: Brittany Carpio??88??F??1935 ? Allergy/Adv: fluoxetine Close Chest X-Ray (Signed) HurtLuis - 02/15/24 Chest X-Ray (Signed) Amber Portillo - 06/27/22 Chest CTA (Signed) Call,Hussein - 02/25/22 Chest X-Ray (Signed) Call,Hussein - 02/25/22 Brain MRI (Signed) Endy Love - 10/29/20 Radiology Report (Cancelled) Leo Desai - 10/22/19 Myocardial Perfusion Scan Nuc Med (Signed) Leo Desai - 10/22/19 Sacrum and Coccyx X-Ray (Signed) Sean Saxena - 08/07/18 Lumbar Spine X-Ray (Signed) Sean Saxena - 08/07/[address] (Signed) Endy Love - 01/03/[address] (Signed) Sherie Santiago - 01/03/18 Launch?[place] [address] XRay Report Signed Patient: Brittany Carpio MR#: [id number] : 1935 Acct:[id number] Age/Sex: 88 / F Date of Service: 02/15/24 Loc: ED Accession Number: [id number] Procedure: XR chest 1V Ordering Provider: Mayte Retana D.O. PROCEDURE: XR CHEST 1V INDICATIONS: chest pain TECHNIQUE: One view of the chest was acquired. COMPARISON: [facility], , XR CHEST 2V, 06/27/2022, 16:24. FINDINGS: Surgical changes and devices: None. Lungs and pleura: Lungs are clear. No pleural effusions or pneumothorax. Mediastinum: Mediastinal contours appear normal. Heart size is normal. Bones and chest wall: No suspicious bony lesions. Overlying soft tissues appear unremarkable. IMPRESSION: No acute cardiopulmonary pathology. Dictated by: Luis Hurt M.D. on 02/15/2024 at 19:45 Approved by: Luis Hurt M.D. on 02/15/2024 at 19:46 ECG Data Attestation: I personally reviewed and interpreted this ECG as follows: Prior ECG tracings: available for review Interpretation: EKG shows sinus bradycardia left bundle-branch block rate of 48 MT 192 QRS of 134 QTC of 473, no acute ST elevation. Patient has prior from 01/17/2022 which appears similar sinus bradycardic with left bundle-branch block rate was 59. MDM Narrative Medical decision making narrative: Chest x-ray shows no acute change Sinus bradycardia Labs show white count of 9.7 hemoglobin 12.5 platelets of 213. Sodium 135 potassium 3.6 chloride of 106 CO2 of 21 BUN 19 creatinine 0.89 glucose of 153 LFTs are negative troponins less than 0.012 repeat less than 0.012. BNP is 12 60. Patient has sinus bradycardia on her EKG but consistent with priors. No additional cardiac arrhythmias noted on telemetry. Patient received 1 L of normal saline that was started in the field. 88-year-old female with syncopal episode while eating witnessed by family, patient was reportedly hypotensive in the field did receive fluids and had improvement upon arrival and during her stay. Patient has recently had some diarrhea so may have a component of dehydration. She was feeling much improved she was ambulated in the department without issue she has not had any persistent hypotension. BNP is elevated compared to prior but chest x-ray does not show any acute changes patient was hypotensive without other clinical signs of fluid overload so was not had any adjustments to her Lasix. Patient and family are comfortable with turning home discussed return precautions. Discharge Plan Departure Patient Disposition: Home Clinical Impression: Syncope Instructions: DI for Syncope in Adults (Fainting) Activity Restrictions/Additional Instructions: Please follow up with your physician for recheck. I hope you continue to feel improved. Please return for fevers, recurrent episodes of passing out, chest pain or shortness of breath, persistent vomiting, new swelling in extremities, changes to mentation or other new or concerning changes. Prescriptions: No Action mupirocin 2 % ointment 1 applic topical TID Qty: 22 0RF aspirin 81 MG tablet,delayed release (DR/EC) 81 mg PO QDAY Qty: 0 [EYLEA] Qty: 0 Vitamin B12 1 tab PO QAM Qty: 0 PreserVision AREDS [id number] awwi-nv-aadc capsule 2 cap PO Q DAY Qty: 0 estradiol 1 mg tablet 1 mg PO QDAY Qty: 90 3RF memantine 10 mg tablet 10 mg PO BID Qty: 180 3RF olanzapine 5 mg tablet 5 mg PO BEDTIME Qty: 90 3RF Rx Instructions: take with 2.5mg tabs to equal 7.5mg at bedtime olanzapine 2.5 mg tablet 2.5 mg PO BEDTIME Qty: 90 3RF Rx Instructions: take with 5mg tabs to equal 7.5mg at bedtime donepezil 10 mg tablet 10 mg PO BEDTIME Qty: 90 3RF oxybutynin chloride 5 mg tablet 5 mg PO BID Qty: 60 6RF atorvastatin 20 mg tablet 20 mg PO BEDTIME omega-3 fatty acids [Fish Oil Concentrate] 1,000 mg capsule 2,000 mg PO DAILY calcium carbonate 500 mg calcium (1,250 mg) capsule 500 mg PO BID Rx Instructions: + Viamin D lisinopril 5 mg TABLET 5 mg PO DAILY furosemide 20 mg TABLET 20 mg PO DAILY isosorbide mononitrate 30 mg tablet extended release 24 hr 30 mg PO DAILY nitroglycerin 0.4 mg tablet, sublingual 0.4 mg SL Q5-15M PRN (Reason: chest pain) Qty: 100 1RF metoprolol tartrate 100 mg tablet 50 mg PO BID Referrals: Jose Angel Jose MD [Primary Care Provider] - Stand Alone Forms: Patient Portal/API
[2024-02-16] VITALS: BP 136/69; PULSE 57; RESP 17; O2SAT 92
== END 2024-02-16 00:37 | disposition home or self-care (01) ==
PROVIDERS: Emergency Provider Emergency Medicine; PCP Internal Medicine
DX: R55 Syncope and collapse (principal); I95.9 Hypotension, unspecified; R07.9 Chest pain, unspecified; I50.9 Heart failure, unspecified; R00.1 Bradycardia, unspecified; I44.7 Left bundle-branch block, unspecified; F03.90 Unspecified dementia, unspecified severity, without behavioral disturbance, psychotic disturbance, mood disturbance, and anxiety; I10 Essential (primary) hypertension; E78.5 Hyperlipidemia, unspecified; Z79.899 Other long term (current) drug therapy
CPT/HCPCS: 36415; 71045; 80053; 82550; 83690; 83735; 83880; 84484; 85025; 85610; 85730; 93005; 99284

== ENCOUNTER → 2024-03-06 13:23 | Outpatient (CLI) | payer MEDICARE, OTHER, SELFPAY | PROVIDERS: PCP Internal Medicine; Referring Provider Internal Medicine; Visit Provider Internal Medicine | DX: R00.1 Bradycardia, unspecified (principal) | CPT/HCPCS: 93246; 93248 ==

== ENCOUNTER → 2024-05-27 16:18 | Outpatient (CLI) | payer MEDICARE, OTHER, SELFPAY ==
--- NOTE | 2024-05-27 16:21 | DI.RAD.S_ITS ---
PROCEDURE: XR HIP W PEL IF DONE LT 2V INDICATIONS: l hip pain TECHNIQUE: AP pelvis with lateral view(s) of the left hip(s). COMPARISON: None. FINDINGS: Bones: No fractures or dislocations. Pelvic ring appears intact. No suspicious bony lesions. Moderate bilateral degenerative hip joint space narrowing. Subchondral sclerosis as well as periarticular osteophytes are present. No erosions. Degenerative changes are present within the lower lumbar spine. Soft tissues: The visualized bowel gas pattern is normal. No suspicious soft tissue calcifications. IMPRESSION: Bilateral hip arthritic changes above. Dictated by: Omayra Mcarthur M.D. on 05/28/2024 at 21:14 Approved by: Omayra Mcarthur M.D. on 05/28/2024 at 21:14
== END ==
PROVIDERS: PCP Internal Medicine; Referring Provider Internal Medicine; Visit Provider Internal Medicine
DX: M25.552 Pain in left hip (principal); M16.0 Bilateral primary osteoarthritis of hip
CPT/HCPCS: 73502

== ENCOUNTER → 2024-06-19 15:15 | Outpatient (ROUT) | payer MEDICARE, OTHER, SELFPAY ==
[2024-06-19 15:43] LABS: Appearance Urine UA CLOUDY; Bilirubin Urine UA NEGATIVE (NEGATIVE); Color Urine UA YELLOW; Glucose Urine UA NEGATIVE (Negative); Ketones Urine UA NEGATIVE (NEGATIVE); Leukocyte Esterase Urine UA 2+ (NEGATIVE); Nitrite Urine UA POSITIVE (Negative); Occult Blood Urine UA 3+ (Negative); Protein Urine UA TRACE (Negative); Specific Gravity Urine UA 1.015 (1.000-1.035); Urobilinogen Urine UA 0.2 E.U./dL (0.2)
[2024-06-19 15:46] LABS: pH Urine UA 6.5 (4.5-8.0)
[2024-06-19 15:50] LABS: Bacteria Urine Many (>30); Culture Indicated Urine Specimen Cultured; RBC Urine 1-5/HPF (0-5/HPF); Squamous Epithelial Cell Urine 0-1 /HPF (0-5/HPF); Urine Volume 10mL (spun); WBC Urine 30-100/HPF (0-5/HPF)
== END ==
PROVIDERS: PCP Internal Medicine; Visit Provider Internal Medicine
DX: R31.9 Hematuria, unspecified (principal)
CPT/HCPCS: 81001; 87077; 87086; 87186

== ENCOUNTER → 2024-07-16 22:46 | Outpatient (ROUT) | payer MEDICARE, OTHER, SELFPAY ==
[2024-07-16 23:00] LABS: Appearance Urine UA SL CLOUDY; Bilirubin Urine UA NEGATIVE (NEGATIVE); Color Urine UA YELLOW; Glucose Urine UA NEGATIVE (Negative); Ketones Urine UA TRACE (NEGATIVE); Leukocyte Esterase Urine UA 1+ (NEGATIVE); Nitrite Urine UA NEGATIVE (Negative); Occult Blood Urine UA TRACE-INTACT (Negative); Protein Urine UA TRACE (Negative); Specific Gravity Urine UA 1.025 (1.000-1.035); Urobilinogen Urine UA 0.2 E.U./dL (0.2)
[2024-07-16 23:11] LABS: pH Urine UA 5.5 (4.5-8.0)
[2024-07-16 23:12] LABS: Mucus Urine 3+ (Negative); RBC Urine 0-1/HPF (0-5/HPF); Squamous Epithelial Cell Urine 10-30 /HPF (0-5/HPF); Urine Volume 10mL (spun); WBC Urine 30-100/HPF (0-5/HPF)
[2024-07-16 23:13] LABS: Bacteria Urine Few (2-10); Hyaline Casts Urine 0-1/LPF
== END ==
PROVIDERS: PCP Internal Medicine; Visit Provider Internal Medicine
DX: N39.0 Urinary tract infection, site not specified (principal); R31.9 Hematuria, unspecified
CPT/HCPCS: 81001; 87077; 87086; 87186

== ENCOUNTER → 2024-07-25 13:30 | Outpatient (ROUT) | payer MEDICARE, OTHER, SELFPAY ==
[2024-07-25 14:10] LABS: Appearance Urine UA CLEAR; Bilirubin Urine UA NEGATIVE (NEGATIVE); Color Urine UA YELLOW; Glucose Urine UA NEGATIVE (Negative); Ketones Urine UA NEGATIVE (NEGATIVE); Leukocyte Esterase Urine UA NEGATIVE (NEGATIVE); Nitrite Urine UA NEGATIVE (Negative); Occult Blood Urine UA TRACE-LYSED (Negative); Protein Urine UA NEGATIVE (Negative); Specific Gravity Urine UA 1.015 (1.000-1.035); Urobilinogen Urine UA 0.2 E.U./dL (0.2)
[2024-07-25 14:20] LABS: pH Urine UA 5.5 (4.5-8.0)
[2024-07-25 14:40] LABS: Bacteria Urine Occasional (0-1); Culture Indicated Urine Cult Not Indicated; RBC Urine 5-10/HPF (0-5/HPF); Squamous Epithelial Cell Urine 5-10 /HPF (0-5/HPF); Urine Volume 10mL (spun); WBC Urine 5-10/HPF (0-5/HPF)
== END ==
PROVIDERS: PCP Internal Medicine; Visit Provider Internal Medicine
DX: R53.83 Other fatigue (principal); R82.90 Unspecified abnormal findings in urine
CPT/HCPCS: 81001

== ENCOUNTER 2025-02-18 13:52 | Emergency (ER) | payer MEDICARE, OTHER, SELFPAY ==
[2025-02-18 14:00] VITALS: BP 174/80; PULSE 82; RESP 16; TEMP 36.5; O2SAT 96; BMI 30.9
--- NOTE | 2025-02-18 14:17 | DI.CT.S_ITS ---
PROCEDURE: CT SOFT TISSUE NECK WO CON INDICATIONS: Aspiration/foreign body TECHNIQUE: Non-contrast 3.0 mm axial sections acquired from the sella to the aortic arch. Additional oblique axial 3.0 mm sections acquired through the pharynx. 3 mm thick coronal and sagittal reformats were generated. For radiation dose reduction, the following was used: automated exposure control. COMPARISON: None. FINDINGS: Image quality: Excellent. Lymph nodes: No enlarged lymph nodes seen throughout the neck. Vessels: Non-opacified vessels appear normal in caliber. Neck spaces: The oropharynx, nasopharynx, and pharynx demonstrate no mucosal lesions. The vocal cords, false vocal cords, pyriform sinuses, epiglottis, vallecula, and tongue base all appear normal. Extramucosal spaces appear unremarkable. Glands: The parotid and submandibular glands appear normal, without stones. Thyroid gland is unremarkable . Bones: No aggressive osseous abnormality. No displaced fractures. Miscellaneous: Visualized brain and orbits appear normal. Lung apices appear clear. Superficial soft tissues appear normal. IMPRESSION: Unremarkable non-contrast CT neck. Dictated by: Jorge Cash M.D. on 02/18/2025 at 14:58 Approved by: Jorge Cash M.D. on 02/18/2025 at 14:59
--- NOTE | 2025-02-18 14:17 | DI.CT.S_ITS ---
PROCEDURE: CT CHEST ABD PEL WO CON INDICATIONS: Aspiration/foreign body TECHNIQUE: After the administration of oral contrast, 5 mm thick sections acquired from the lung apices to the symphysis pubis. 5 mm thick coronal and sagittal reformats acquired, with additional 7 mm coronal MIP reformats through the lungs. For radiation dose reduction, the following was used: automated exposure control, adjustment of mA and/or kV according to patient size. COMPARISON: None. FINDINGS: Image quality: Diagnostic. CHEST: Lower Neck: No enlarged lymph nodes. Thyroid: No thyroid nodules which require sonographic follow up, per consensus guidelines. Axillae: No enlarged lymph nodes. Chest Wall: Unremarkable. Bones: Unremarkable. Lungs and Pleura: No pneumothorax or pleural effusions. No consolidation or suspicious nodules. Heart: Heart size is normal. No pericardial effusion. Thoracic Vessels: The aorta and pulmonary arteries demonstrate normal size. Mediastinum and Nata: No enlarged lymph nodes. Esophagus: No wall thickening. No hiatal hernia. ABDOMEN: Liver: No solid mass. Gallbladder: No radiopaque gallstones or wall thickening. Biliary ducts: No biliary dilation. Pancreas: No ductal dilation. Spleen: Size is within normal limits. Adrenal Glands: No adrenal nodules. Kidneys and Ureters: No hydronephrosis. No solid mass. No complex renal cystic lesion which requires follow up. Stomach and Bowel: Normal colonic caliber, without significant wall thickening. Peritoneum: No abnormal intraperitoneal fluid. No free air. Ventral Wall: No hernia. Abdominal Nodes: No retroperitoneal or mesenteric adenopathy by size criteria. Vessels: Aorta and inferior vena cava are normal in size. PELVIS: Pelvic Organs: Uterus is surgically absent. No adnexal masses.. Bladder: Unremarkable. Pelvic Nodes: No enlarged lymph nodes. Miscellaneous: No inguinal hernias are seen. Bones: No aggressive osseous abnormality. IMPRESSION: No acute process noted in the chest, abdomen, and pelvis. Dictated by: Jorge Cash M.D. on 02/18/2025 at 14:59 Approved by: Jorge Cash M.D. on 02/18/2025 at 15:03
--- NOTE | 2025-02-18 14:19 | ED.GENADULT ---
HPI - General Adult General Chief complaint: Upper Respiratory Symptoms Stated complaint: choking Time Seen by Provider: 02/18/25 14:12 Source: patient Mode of arrival: Ambulatory History of Present Illness HPI narrative: Patient has history of dementia from [facility]. Patient aspirated on lunch today. at bedside. He is [id number]. POLST form on file indicates DNR DNI with comfort measures only. at this time does not want any laboratory studies but agrees for CT imaging. He does desire admission overnight for observation. No blood work no antibiotics. I left voicemail for daughter Anna as wanted me to call her. I did call Nadir, son as well. did give me permission to call him. I spoke with and he will call his children for his wishes for care treatment for patient., at this time does agree for CAT scan imaging and admission for observation but no blood work or antibiotics at this time. Related Data Home Medications ?Medication ?Instructions ?Recorded ?Confirmed [EYLEA] ##0 04/02/17 11/18/24 Previous Rx's ?Medication ?Instructions ?Recorded nitroglycerin 0.4 mg sublingual 0.4 mg sublingual Q5-15M PRN chest 09/01/21 tablet pain #100 tabs acetaminophen 325 mg capsule 650 mg (2 x 325 mg) PO Q6H PRN 06/13/24 pain/fever #180 caps cyanocobalamin (vitamin B-12) 1,000 mcg PO DAILY #90 tabs 06/13/24 1,000 mcg tablet (Vitamin B-12) mupirocin 2 % topical ointment 1 applic topical TID #22 grams 06/16/24 atorvastatin 20 mg tablet 20 mg PO BEDTIME #30 tabs 06/23/24 donepezil 10 mg tablet 10 mg PO BEDTIME #30 tabs 06/23/24 furosemide 20 mg tablet 20 mg PO DAILY #30 tabs 06/23/24 isosorbide mononitrate 30 mg 30 mg PO DAILY #30 tabs 06/23/24 tablet,extended release 24 hr lisinopril 5 mg tablet 5 mg PO DAILY #30 tabs 06/23/24 memantine 10 mg tablet 10 mg PO BID #60 tabs 06/23/24 olanzapine 2.5 mg tablet 2.5 mg PO BEDTIME #30 tabs 06/23/24 oxybutynin chloride 5 mg tablet 5 mg PO BID #60 tabs 06/23/24 estradiol 1 mg tablet 1 mg PO QDAY #90 tabs 07/03/24 aspirin 81 mg chewable tablet 81 mg PO DAILY #90 tabs 07/18/24 isosorbide mononitrate 20 mg tablet 20 mg PO BID #60 tabs 07/18/24 ibuprofen 400 mg tablet 400 mg PO Q8H PRN pain/fever #180 07/31/24 tabs fluoxetine 20 mg capsule 20 mg PO DAILY #90 caps 09/12/24 olanzapine 5 mg tablet 5 mg PO BEDTIME #90 tabs 09/12/24 acetaminophen 325 mg capsule 650 mg (2 x 325 mg) PO Q6H #150 10/23/24 caps metoprolol succinate 25 mg 25 mg PO BID #60 tabs 10/23/24 tablet,extended release 24 hr nystatin 100,000 unit/gram topical 1 applic topical TID PRN rash #30 10/24/24 powder grams Allergies Allergy/AdvReac Type Severity Reaction Status Date / Time No Known Drug Allergies Allergy Verified 02/18/25 14:01 Review of Systems Review of Systems Narrative: GENERAL: Negative chills, fatigue, malaise, fever, sweats. HEENT: Negative sinus pain, ear pain, sore throat RESPIRATORY: Negative dyspnea, positive cough CARDIOVASCULAR: Negative chest pain, palpitations GASTROINTESTINAL: Negative vomiting, nausea, abdominal pain : Negative dysuria, frequency, hematuria MUSCULOSKELETAL: Negative muscle or bony pain SKIN: Negative rash, skin lesions NEUROLOGIC: Negative weakness, numbness ROS Unobtainable: All systems reviewed & are unremarkable except as noted in HPI and below Patient History Medical History Urinary incontinence, mixed Chronic heart failure with preserved ejection fraction COVID-19 (~10/2021) Alzheimer disease Fractures Eczema Mumps Measles Chicken pox Macular degeneration, 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, dry (~2007) Heavy menstrual period (~1979) Bundle branch block, left Idiopathic peripheral neuropathy (12/01/16) Coronary artery 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 (05/2015) Diverticulosis of large intestine without perforation or abscess without bleeding Essential hypertension Personal history of colonic polyps Surgical History S/P PTCA (percutaneous transluminal coronary angioplasty) (11/13/19) Anesthesia History of knee surgery (~2013) History of ankle surgery (~1991) History of cataract removal with insertion of prosthetic lens (~2003) History of cataract removal with insertion of prosthetic lens (~2002) Status post colectomy (~08/1996) Status post hysterectomy with oophorectomy (~1982) Family History Father Family history of colon cancer Grandmother Heart disease Grandfather Heart disease Grandmother Heart disease Grandfather No problems noted. Mother No problems noted. 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 EYES: Pupils equal round ENT: Mucous membranes moist. NECK: Trachea midline. CARDIOVASCULAR: Regular rate and rhythm RESPIRATORY: Clear to auscultation. Breath sounds equal bilaterally. No wheezes, rales, or rhonchi. Patient is speaking comfortably. 96% room air. GASTROINTESTINAL: Abdomen soft, non-tender EXTREMITIES: No gross deformities. BACK: No flank tenderness. NEURO: AOx1. Clear speech SKIN: Warm and dry PSYCH: Not anxious, is cooperative Initial Vital Signs Initial Vital Signs: Vital Signs Temperature 97.7 F 02/18/25 14:00 Pulse Rate 82 02/18/25 14:00 Respiratory Rate 16 02/18/25 14:00 Blood Pressure 174/80 H 02/18/25 14:00 Pulse Oximetry 96 02/18/25 14:00 Oxygen Delivery Method Room Air 02/18/25 14:00 Course Orders Ordered: ED Orders 02/18/25 14:17 CT chest abd pel wo con Stat CT soft tissue neck wo con Stat Vital Signs Vital signs: Vital Signs - 8 hr 02/18/25 14:00 02/18/25 16:26 Temperature 97.7 F Pulse Rate 82 87 Respiratory Rate 16 16 Blood Pressure 174/80 H 140/81 Pulse Oximetry 96 97 Oxygen Delivery Method Room Air Room Air Medical Decision Making Imaging Data CT soft tissue neck: Radiologist's Impression: [address] [address] [address] Scan Report Signed Patient: Brittany Carpio MR#: [id number] : 1935 Acct:[id number] Age/Sex: 89 / F Date of Service: 02/18/25 Loc: ED Accession Number: [id number] Procedure: CT soft tissue neck wo con Ordering Provider: Doug Miguel MD PROCEDURE: CT SOFT TISSUE NECK WO CON INDICATIONS: Aspiration/foreign body TECHNIQUE: Non-contrast 3.0 mm axial sections acquired from the sella to the aortic arch. Additional oblique axial 3.0 mm sections acquired through the pharynx. 3 mm thick coronal and sagittal reformats were generated. For radiation dose reduction, the following was used: automated exposure control. COMPARISON: None. FINDINGS: Image quality: Excellent. Lymph nodes: No enlarged lymph nodes seen throughout the neck. Vessels: Non-opacified vessels appear normal in caliber. Neck spaces: The oropharynx, nasopharynx, and pharynx demonstrate no mucosal lesions. The vocal cords, false vocal cords, pyriform sinuses, epiglottis, vallecula, and tongue base all appear normal. Extramucosal spaces appear unremarkable. Glands: The parotid and submandibular glands appear normal, without stones. Thyroid gland is unremarkable . Bones: No aggressive osseous abnormality. No displaced fractures. Miscellaneous: Visualized brain and orbits appear normal. Lung apices appear clear. Superficial soft tissues appear normal. IMPRESSION: Unremarkable non-contrast CT neck. Dictated by: Jorge Cash M.D. on 02/18/2025 at 14:58 Approved by: Jorge Cash M.D. on 02/18/2025 at 14:59 CT chest abdomen pelvis: Radiologist's Impression: [address] [address] [address] Scan Report Signed Patient: Brittany Carpio MR#: [id number] : 1935 Acct:[id number] Age/Sex: 89 / F Date of Service: 02/18/25 Loc: ED Accession Number: [id number] Procedure: CT chest abd pel wo con Ordering Provider: Doug Miguel MD PROCEDURE: CT CHEST ABD PEL WO CON INDICATIONS: Aspiration/foreign body TECHNIQUE: After the administration of oral contrast, 5 mm thick sections acquired from the lung apices to the symphysis pubis. 5 mm thick coronal and sagittal reformats acquired, with additional 7 mm coronal MIP reformats through the lungs. For radiation dose reduction, the following was used: automated exposure control, adjustment of mA and/or kV according to patient size. COMPARISON: None. FINDINGS: Image quality: Diagnostic. CHEST: Lower Neck: No enlarged lymph nodes. Thyroid: No thyroid nodules which require sonographic follow up, per consensus guidelines. Axillae: No enlarged lymph nodes. Chest Wall: Unremarkable. Bones: Unremarkable. Lungs and Pleura: No pneumothorax or pleural effusions. No consolidation or suspicious nodules. Heart: Heart size is normal. No pericardial effusion. Thoracic Vessels: The aorta and pulmonary arteries demonstrate normal size. Mediastinum and Nata: No enlarged lymph nodes. Esophagus: No wall thickening. No hiatal hernia. ABDOMEN: Liver: No solid mass. Gallbladder: No radiopaque gallstones or wall thickening. Biliary ducts: No biliary dilation. Pancreas: No ductal dilation. Spleen: Size is within normal limits. Adrenal Glands: No adrenal nodules. Kidneys and Ureters: No hydronephrosis. No solid mass. No complex renal cystic lesion which requires follow up. Stomach and Bowel: Normal colonic caliber, without significant wall thickening. Peritoneum: No abnormal intraperitoneal fluid. No free air. Ventral Wall: No hernia. Abdominal Nodes: No retroperitoneal or mesenteric adenopathy by size criteria. Vessels: Aorta and inferior vena cava are normal in size. PELVIS: Pelvic Organs: Uterus is surgically absent. No adnexal masses.. Bladder: Unremarkable. Pelvic Nodes: No enlarged lymph nodes. Miscellaneous: No inguinal hernias are seen. Bones: No aggressive osseous abnormality. IMPRESSION: No acute process noted in the chest, abdomen, and pelvis. Dictated by: Jorge Cash M.D. on 02/18/2025 at 14:59 Approved by: Jorge Cash M.D. on 02/18/2025 at 15:03 [facility] Narrative Medical decision making narrative: Patient has history of dementia from [facility]. Patient aspirated on lunch today. at bedside. He is [id number]. POLST form on file indicates DNR DNI with comfort measures only. at this time does not want any laboratory studies but agrees for CT imaging. He does desire admission overnight for observation. No blood work no antibiotics. I left voicemail for daughter Anna as wanted me to call her. I did call Nadir, son as well. did give me permission to call him. I spoke with and he will call his children for his wishes for care treatment for patient., at this time does agree for CAT scan imaging and admission for observation but no blood work or antibiotics at this time MDM After history and exam, CT soft tissue neck CT chest, at this time I have spoken with [id number], . No blood work or medications at this time. He does agree for admission. Differential considered: Includes but not limited to aspiration Medical records reviewed: No recent visit for this complaint Imaging studies independently reviewed: CT chest abdomen pelvis CT soft tissue neck no acute finding Consultations: None indicated at this time Re-evaluations: 4:25 p.m.. Reviewed results with patient and . has spoken with his daughter and son. At this time, he does not want any laboratory studies to be done. He would like patient to be discharged home. Patient at 96% room air in no respiratory distress. Is not vomiting or coughing. Breathing easily in no respiratory distress. Discussion: Appropriate for discharge home exam is reassuring. Patient airway intact at this time. [id number], would like patient discharged home. Diagnosis: Aspiration Discharge Plan Departure Patient Disposition: Home Clinical Impression: Aspiration into airway Qualifiers: Encounter type: initial encounter Qualified Code(s): T17.908A - Unspecified foreign body in respiratory tract, part unspecified causing other injury, initial encounter Instructions: DI for Aspiration Pneumonia Activity Restrictions/Additional Instructions: Aspiration of food contents is still possible to have occurred into the lungs and airway. Please return immediately if you change your mind to be admitted/observed or laboratory studies to be done. Prescriptions: No Action [EYLEA] Qty: 0 acetaminophen 325 mg capsule 650 mg PO Q6H PRN (Reason: pain/fever) Qty: 180 3RF cyanocobalamin (vitamin B-12) [Vitamin B-12] 1,000 mcg tablet 1,000 mcg PO DAILY Qty: 90 3RF mupirocin 2 % ointment 1 applic topical TID Qty: 22 0RF atorvastatin 20 mg tablet 20 mg PO BEDTIME Qty: 30 11RF donepezil 10 mg tablet 10 mg PO BEDTIME Qty: 30 11RF furosemide 20 mg tablet 20 mg PO DAILY Qty: 30 11RF memantine 10 mg tablet 10 mg PO BID Qty: 60 11RF isosorbide mononitrate 30 mg tablet extended release 24 hr 30 mg PO DAILY Qty: 30 11RF oxybutynin chloride 5 mg tablet 5 mg PO BID Qty: 60 11RF olanzapine 2.5 mg tablet 2.5 mg PO BEDTIME Qty: 30 11RF Rx Instructions: take with 5mg tabs to equal 7.5mg at bedtime lisinopril 5 mg tablet 5 mg PO DAILY Qty: 30 11RF estradiol 1 mg tablet 1 mg PO QDAY Qty: 90 3RF ibuprofen 400 mg tablet 400 mg PO Q8H PRN (Reason: pain/fever) Qty: 180 3RF olanzapine 5 mg tablet 5 mg PO BEDTIME Qty: 90 3RF Rx Instructions: take with 2.5mg tabs to equal 7.5mg at bedtime nystatin 100,000 unit/gram powder 1 applic topical TID PRN (Reason: rash) Qty: 30 3RF nitroglycerin 0.4 mg tablet, sublingual 0.4 mg SL Q5-15M PRN (Reason: chest pain) Qty: 100 1RF fluoxetine 20 mg capsule 20 mg PO DAILY Qty: 90 3RF isosorbide mononitrate 20 mg tablet 20 mg PO BID Qty: 60 11RF Rx Instructions: give doses 7 hrs apart, in am and afternoon aspirin 81 mg tablet,chewable 81 mg PO DAILY Qty: 90 3RF acetaminophen 325 mg capsule 650 mg PO Q6H Qty: 150 3RF Rx Instructions: only administer while awake metoprolol succinate 25 mg tablet extended release 24 hr 25 mg PO BID Qty: 60 3RF Referrals: Jose Angel Jose MD [Primary Care Provider, Internal Medicine] Stand Alone Forms: Patient Portal/API
--- NOTE | 2025-02-18 16:18 | PC.NURSE ---
Call from [place] [facility] living facility wanting update on pt. No update at this time. Will call [phone] with any update.
[2025-02-18 16:26] VITALS: BP 140/81; PULSE 87; RESP 16; O2SAT 97
== END 2025-02-18 16:50 | disposition home or self-care (01) ==
PROVIDERS: Emergency Provider Emergency Medicine; PCP Internal Medicine
DX: T17.908A Unspecified foreign body in respiratory tract, part unspecified causing other injury, initial encounter (principal)
CPT/HCPCS: 70490; 71250; 74176; 99281; 99284

== ENCOUNTER → 2025-02-24 13:18 | Outpatient (ROUT) | payer MEDICARE, OTHER, SELFPAY ==
[2025-02-24 13:29] LABS: Appearance Urine UA CLOUDY; Bilirubin Urine UA NEGATIVE (NEGATIVE); Color Urine UA YELLOW; Glucose Urine UA NEGATIVE (Negative); Ketones Urine UA NEGATIVE (NEGATIVE); Leukocyte Esterase Urine UA 1+ (NEGATIVE); Nitrite Urine UA POSITIVE (Negative); Occult Blood Urine UA TRACE-INTACT (Negative); Protein Urine UA NEGATIVE (Negative); Specific Gravity Urine UA 1.010 (1.000-1.035); Urobilinogen Urine UA 0.2 E.U./dL (0.2)
[2025-02-24 13:30] LABS: pH Urine UA 7.0 (4.5-8.0)
[2025-02-24 13:36] LABS: Culture Indicated Urine Specimen Cultured
== END ==
PROVIDERS: PCP Internal Medicine; Visit Provider Nurse Practitioner Family
DX: R31.0 Gross hematuria (principal); R30.0 Dysuria; N39.0 Urinary tract infection, site not specified
CPT/HCPCS: 81001; 87077; 87086

== ENCOUNTER 2025-03-04 11:08 | Emergency (ER) | payer MEDICARE, OTHER, SELFPAY ==
--- NOTE | 2025-03-04 11:13 | DI.RAD.S_ITS ---
PROCEDURE: XR CHEST 1V
[2025-03-04 11:14] VITALS: PULSE 70; O2SAT 97
--- NOTE | 2025-03-04 11:14 | ED_ITS ---
HPI - General Adult
--- NOTE | 2025-03-04 11:14 | ED.GENADULT ---
HPI - General Adult General Chief complaint: Skin/Abscess/Foreign Body Stated complaint: Aspiration Time Seen by Provider: 03/04/25 11:13 Source: patient, EMS, RN notes reviewed and old records reviewed Mode of arrival: EMS History of Present Illness HPI narrative: 89-year-old female history of dementia, on aspirin daily who presents with complaint of aspiration event while eating lunch today. EMS reports she had an episode about 2 weeks ago and she has a visit here on 02/18 for similar. Patient does not recall the event but does know her name, knows she is in the emergency department. She has not no complaints currently. Medics reported that she had started choking and coughing while she was eating lunch today. When they arrived she had coughed out a little bit of productive sputum. She did not have any syncope or loss of consciousness. She has no complaints of chest pain, she does not have any complaint of shortness of breath, no nausea or vomiting, no other GI or urinary symptoms reported. No changes to voice that patient appreciates. Patient does not have any allergies reported. She presents with her POLST form, she is DNR/DNI comfort measures. EMS notes she had normal vitals throughout transport no hypoxia, no tachycardia, they note she had a little bit of a cough they did suction her in the field. Related Data Home Medications ?Medication ?Instructions ?Recorded ?Confirmed [EYLEA] ##0 04/02/17 11/18/24 Previous Rx's ?Medication ?Instructions ?Recorded nitroglycerin 0.4 mg sublingual 0.4 mg sublingual Q5-15M PRN chest 09/01/21 tablet pain #100 tabs acetaminophen 325 mg capsule 650 mg (2 x 325 mg) PO Q6H PRN 06/13/24 pain/fever #180 caps cyanocobalamin (vitamin B-12) 1,000 mcg PO DAILY #90 tabs 06/13/24 1,000 mcg tablet (Vitamin B-12) mupirocin 2 % topical ointment 1 applic topical TID #22 grams 06/16/24 atorvastatin 20 mg tablet 20 mg PO BEDTIME #30 tabs 06/23/24 donepezil 10 mg tablet 10 mg PO BEDTIME #30 tabs 06/23/24 furosemide 20 mg tablet 20 mg PO DAILY #30 tabs 06/23/24 isosorbide mononitrate 30 mg 30 mg PO DAILY #30 tabs 06/23/24 tablet,extended release 24 hr lisinopril 5 mg tablet 5 mg PO DAILY #30 tabs 06/23/24 memantine 10 mg tablet 10 mg PO BID #60 tabs 06/23/24 olanzapine 2.5 mg tablet 2.5 mg PO BEDTIME #30 tabs 06/23/24 oxybutynin chloride 5 mg tablet 5 mg PO BID #60 tabs 06/23/24 estradiol 1 mg tablet 1 mg PO QDAY #90 tabs 07/03/24 aspirin 81 mg chewable tablet 81 mg PO DAILY #90 tabs 07/18/24 isosorbide mononitrate 20 mg tablet 20 mg PO BID #60 tabs 07/18/24 ibuprofen 400 mg tablet 400 mg PO Q8H PRN pain/fever #180 07/31/24 tabs fluoxetine 20 mg capsule 20 mg PO DAILY #90 caps 09/12/24 olanzapine 5 mg tablet 5 mg PO BEDTIME #90 tabs 09/12/24 acetaminophen 325 mg capsule 650 mg (2 x 325 mg) PO Q6H #150 10/23/24 caps metoprolol succinate 25 mg 25 mg PO BID #60 tabs 10/23/24 tablet,extended release 24 hr nystatin 100,000 unit/gram topical 1 applic topical TID PRN rash #30 10/24/24 powder grams Allergies Allergy/AdvReac Type Severity Reaction Status Date / Time No Known Drug Allergies Allergy Verified 03/04/25 11:16 Review of Systems Review of Systems ROS Unobtainable: All systems reviewed & are unremarkable except as noted in HPI and below Patient History Medical History Urinary incontinence, mixed Chronic heart failure with preserved ejection fraction COVID-19 (~10/2021) Alzheimer disease Fractures Eczema Mumps Measles Chicken pox Macular degeneration, 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, dry (~2007) Heavy menstrual period (~1979) Bundle branch block, left Idiopathic peripheral neuropathy (12/01/16) Coronary artery disease involving [place] coronary artery of [place] heart without angina pectoris (05/2015) Diverticulosis of large intestine without perforation or abscess without bleeding Essential hypertension Personal history of colonic polyps Surgical History S/P PTCA (percutaneous transluminal coronary angioplasty) (11/13/19) Anesthesia History of knee surgery (~2013) History of ankle surgery (~1991) History of cataract removal with insertion of prosthetic lens (~2003) History of cataract removal with insertion of prosthetic lens (~2002) Status post colectomy (~08/1996) Status post hysterectomy with oophorectomy (~1982) Family History Father Family history of colon cancer Grandmother Heart disease Grandfather Heart disease Grandmother Heart disease Grandfather No problems noted. Mother No problems noted. 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 Patient is conversant. HEENT: Atraumatic, pupils are equal round reactive to light, extraocular movements are intact, nares are clear, there is no conjunctival pallor. Throat is clear without any exudates, erythema, tonsillar enlargement or uvular deviation, throat is clear patient has sounds slightly hoarse although she denies any changes to voice. No stridor, no drooling. Patient is resting comfortably on the gurney. HEART: Regular rate and rhythm without murmur, clicks, rubs. LUNGS:Lungs clear to auscultation, no wheezes, rales, crackles, chest moves symmetrically, no tachypnea accessory muscle use ABD:bowel sounds normal, soft, non-tender, no guarding, rebound, rigidity, no masses noted, no hepatosplenomegaly MSCL: Non-tender, full range of motion NEURO:CN 2-12 intact, sensation normal. Initial Vital Signs Initial Vital Signs: Vital Signs Pulse Rate 70 03/04/25 11:14 Pulse Oximetry 97 03/04/25 11:14 Course Orders Ordered: ED Orders 03/04/25 11:13 Chest [XR chest 1V] Stat Vital Signs Vital signs: Vital Signs - 8 hr 03/04/25 11:14 03/04/25 11:16 03/04/25 11:17 Temperature 97.7 F Pulse Rate 70 80 Respiratory Rate 16 Blood Pressure 155/68 H 136/63 Pulse Oximetry 97 96 Oxygen Delivery Method Room Air 03/04/25 11:17 03/04/25 11:30 03/04/25 11:43 Temperature Pulse Rate 69 64 63 Respiratory Rate Blood Pressure Pulse Oximetry 96 96 96 Oxygen Delivery Method 03/04/25 11:43 03/04/25 12:00 03/04/25 12:00 Temperature Pulse Rate 75 Respiratory Rate Blood Pressure 133/60 142/64 H Pulse Oximetry 98 Oxygen Delivery Method Medical Decision Making MDM Narrative Medical decision making narrative: Chest x-ray shows low lung volumes no acute abnormality no focal infiltrates. 89-year-old female, had what sounds like aspiration event at her facility while eating she is calm appropriate slightly hoarse but no difficulty with breathing, vitals has been overall appropriate. She has felt appropriate for discharge home but plan for repeat chest x-ray if any new symptoms. Discharge Plan Departure Patient Disposition: Home Clinical Impression: Aspiration of food Activity Restrictions/Additional Instructions: Follow up for re-evaluation if you have any new or persistent symptoms. Your imaging today did not show any obvious pneumonia or changes to your lungs your oxygen level and vital signs has been appropriate but if you develop new fevers, chest pain or shortness of breath, difficulty with swallowing, productive cough or other new or concerning changes you should have repeat imaging. Return to the emergency department for chest pain, difficulty with breathing any changes to mentation, stridor, sudden changes to voice or other new or concerning changes Prescriptions: No Action [EYLEA] Qty: 0 acetaminophen 325 mg capsule 650 mg PO Q6H PRN (Reason: pain/fever) Qty: 180 3RF cyanocobalamin (vitamin B-12) [Vitamin B-12] 1,000 mcg tablet 1,000 mcg PO DAILY Qty: 90 3RF mupirocin 2 % ointment 1 applic topical TID Qty: 22 0RF atorvastatin 20 mg tablet 20 mg PO BEDTIME Qty: 30 11RF donepezil 10 mg tablet 10 mg PO BEDTIME Qty: 30 11RF furosemide 20 mg tablet 20 mg PO DAILY Qty: 30 11RF memantine 10 mg tablet 10 mg PO BID Qty: 60 11RF isosorbide mononitrate 30 mg tablet extended release 24 hr 30 mg PO DAILY Qty: 30 11RF oxybutynin chloride 5 mg tablet 5 mg PO BID Qty: 60 11RF olanzapine 2.5 mg tablet 2.5 mg PO BEDTIME Qty: 30 11RF Rx Instructions: take with 5mg tabs to equal 7.5mg at bedtime lisinopril 5 mg tablet 5 mg PO DAILY Qty: 30 11RF estradiol 1 mg tablet 1 mg PO QDAY Qty: 90 3RF ibuprofen 400 mg tablet 400 mg PO Q8H PRN (Reason: pain/fever) Qty: 180 3RF olanzapine 5 mg tablet 5 mg PO BEDTIME Qty: 90 3RF Rx Instructions: take with 2.5mg tabs to equal 7.5mg at bedtime nystatin 100,000 unit/gram powder 1 applic topical TID PRN (Reason: rash) Qty: 30 3RF nitroglycerin 0.4 mg tablet, sublingual 0.4 mg SL Q5-15M PRN (Reason: chest pain) Qty: 100 1RF fluoxetine 20 mg capsule 20 mg PO DAILY Qty: 90 3RF isosorbide mononitrate 20 mg tablet 20 mg PO BID Qty: 60 11RF Rx Instructions: give doses 7 hrs apart, in am and afternoon aspirin 81 mg tablet,chewable 81 mg PO DAILY Qty: 90 3RF acetaminophen 325 mg capsule 650 mg PO Q6H Qty: 150 3RF Rx Instructions: only administer while awake metoprolol succinate 25 mg tablet extended release 24 hr 25 mg PO BID Qty: 60 3RF Referrals: Jose Angel Jose MD [Primary Care Provider, Internal Medicine] Stand Alone Forms: Patient Portal/API
[2025-03-04 11:16] VITALS: BP 155/68; PULSE 80; RESP 16; TEMP 36.5; O2SAT 96; BMI 31.5
[2025-03-04 11:17] VITALS: BP 136/63; PULSE 69; O2SAT 96
[2025-03-04 11:30] VITALS: PULSE 64; O2SAT 96
[2025-03-04 11:43] VITALS: BP 133/60; PULSE 63; O2SAT 96
[2025-03-04 12:00] VITALS: BP 142/64; PULSE 75; O2SAT 98
== END 2025-03-04 12:25 | disposition home or self-care (01) ==
PROVIDERS: Emergency Provider Emergency Medicine; PCP Internal Medicine
DX: T17.928A Food in respiratory tract, part unspecified causing other injury, initial encounter (principal)
CPT/HCPCS: 71045; 99281; 99283